=== PATIENT | female | born 1950 | race Caucasian/White ===

== ENCOUNTER → 2017-08-30 11:42 | Outpatient (CLI) | payer MEDICARE, OTHER, SELFPAY ==
[2017-08-30 11:12] VITALS: BP 138/85; BMI 27.6
[2017-08-30 13:43] LABS: Free T3 2.7 pg/mL (2.18-3.98); T4 Free Direct 1.03 ng/dL (0.76-1.46); Thyroid Stim Hormone (TSH) 1.55 uIU/mL (0.358-3.74)
[2017-09-01 14:46] LABS: Vitamin D 1,25-Dihydroxy 30.9 pg/mL (19.9-79.3)
== END ==
PROVIDERS: Family Provider Family Medicine Geriatric Medicine; PCP Family Medicine Geriatric Medicine; Visit Provider Nurse Practitioner
DX: E03.9 Hypothyroidism, unspecified (principal); E55.9 Vitamin D deficiency, unspecified
CPT/HCPCS: 36415; 82652; 84439; 84443; 84481

== ENCOUNTER → 2017-12-15 13:32 | Outpatient (CLI) | payer MEDICARE, OTHER, SELFPAY ==
[2017-12-15 15:34] LABS: Absolute Lymphocyte Count 1.62 X10^3/ul (0.83-4.51); Basophil# 0.02 X10^3/uL; Basophil% 0.3 % (0-1); Eosinophil# 0.13 X10^3/uL; Eosinophils% 1.8 % (0-5); Hematocrit 40.8 % (37-47); Lymphocyte # 1.62 X10^3/ul (4.0); Lymphocyte % 22.2 % (19-41); Mean Corp Hgb Conc 31.9 g/gl (32-36); Mean Corpuscular Hgb 28.1 pg (27.0-32.0); Mean Corpuscular Volume 88.1 fL (81-99); Mean Platelet Vol. 10.7 fl (6.2-12.0); Monocyte# 0.56 X10^3/uL; Monocyte% 7.7 % (0-10); Neutrophil # 4.95 X10^3/uL (2.7-7.7); Neutrophil % 67.9 % (47-70); Platelet Count 291 K/mm3 (150-450); RBC Distribution Width CV 14.2 % (11.6-14.6); RBC Distribution Width SD 45.7 fl (35.1-43.9); Red Blood Count 4.63 M/mm3 (4.2-5.4); White Blood Count 7.3 K/mm3 (4.4-11.0)
[2017-12-15 15:37] LABS: POSITIVE COUNT NO; POSITIVE DIFFERENTIAL NO; POSITIVE MORPHOLOGY NO
[2017-12-15 15:59] LABS: Erythrocyte Sedimentation Rate 9 mm/hr (0-30)
[2017-12-15 16:18] LABS: Anion Gap 7 (5-15); BUN 13 mg/dL (7-18); BUN/Creat Ratio 17.2 RATIO (10-20); Calcium,Total 9.5 mg/dL (8.5-10.1); Chloride 104 mmol/L (98-107); Creatinine, Serum 0.76 mg/dL (0.55-1.02); EST Glomerular Filtration Rate 81 mL/min (>60); Est Glom Filt Rate - Afr Amer 98 mL/min (>60); Glucose 78 mg/dL (74-106); Potassium 4.2 mmol/L (3.5-5.1); Rheumatoid Factor < 10.0 IU/mL (<15); Sodium Level 141 mmol/L (136-145); Uric Acid 5.7 mg/dL (2.6-6.0)
[2017-12-17 14:28] LABS: ANTINUCLEAR ANTIBODIES DIRECT Negative (Negative)
== END ==
PROVIDERS: Family Provider Family Medicine Geriatric Medicine; PCP Family Medicine Geriatric Medicine; Visit Provider Family Medicine Geriatric Medicine
DX: I10 Essential (primary) hypertension (principal); E78.4 Other hyperlipidemia; M10.9 Gout, unspecified; M19.90 Unspecified osteoarthritis, unspecified site; M25.50 Pain in unspecified joint
CPT/HCPCS: 36415; 80048; 84550; 85025; 85652; 86038; 86140; 86431

== ENCOUNTER → 2018-03-02 11:27 | Outpatient (CLI) | payer MEDICARE, OTHER, SELFPAY ==
[2018-03-02 12:59] LABS: Free T3 2.6 pg/mL (2.18-3.98); T4 Free Direct 1.18 ng/dL (0.76-1.46); Thyroid Stim Hormone (TSH) 2.12 uIU/mL (0.358-3.74)
== END ==
PROVIDERS: Family Provider Family Medicine Geriatric Medicine; PCP Family Medicine Geriatric Medicine; Visit Provider Nurse Practitioner
DX: E03.9 Hypothyroidism, unspecified (principal); E07.9 Disorder of thyroid, unspecified
CPT/HCPCS: 36415; 84439; 84443; 84481

== ENCOUNTER → 2018-03-29 12:56 | Outpatient (CLI) | payer MEDICARE, OTHER, SELFPAY | PROVIDERS: Family Provider Family Medicine Geriatric Medicine; PCP Family Medicine Geriatric Medicine; Visit Provider Family Medicine Geriatric Medicine | DX: R19.5 Other fecal abnormalities (principal) | CPT/HCPCS: 87177; 87209 ==

== ENCOUNTER → 2018-04-19 10:44 | Outpatient (CLI) | payer MEDICARE, OTHER, SELFPAY | PROVIDERS: Family Provider Family Medicine Geriatric Medicine; PCP Family Medicine Geriatric Medicine; Visit Provider Family Medicine Geriatric Medicine | DX: R19.5 Other fecal abnormalities (principal) | CPT/HCPCS: 87177; 87209 ==

== ENCOUNTER → 2018-04-25 09:36 | Outpatient (CLI) | payer MEDICARE, OTHER, SELFPAY | PROVIDERS: Family Provider Family Medicine Geriatric Medicine; PCP Family Medicine Geriatric Medicine; Visit Provider Family Medicine Geriatric Medicine | DX: Z00.00 Encounter for general adult medical examination without abnormal findings (principal) ==

== ENCOUNTER → 2018-05-04 16:24 | Outpatient (CLI) | payer MEDICARE, OTHER, SELFPAY ==
[2018-05-04 17:25] LABS: Absolute Lymphocyte Count 1.58 X10^3/ul (0.83-4.51); Absolute Neutrophil Count 8.4 X10^3/uL (2.0-7.7); Basophil# 0.02 X10^3/uL; Basophil% 0.2 % (0-1); Eosinophil# 0.15 X10^3/uL; Eosinophils% 1.4 % (0-5); Hematocrit 41.4 % (37-47); Hemoglobin 13.2 g/dl (12.0-15.0); Lymphocyte # 1.58 X10^3/ul (4.0); Lymphocyte % 14.5 % (19-41); Mean Corp Hgb Conc 31.9 g/gl (32-36); Mean Corpuscular Hgb 28.6 pg (27.0-32.0); Mean Corpuscular Volume 89.6 fL (81-99); Mean Platelet Vol. 10.7 fl (6.2-12.0); Monocyte# 0.74 X10^3/uL; Monocyte% 6.8 % (0-10); Neutrophil # 8.43 X10^3/uL (2.7-7.7); Platelet Count 305 K/mm3 (150-450); RBC Distribution Width CV 14.6 % (11.6-14.6); RBC Distribution Width SD 47.7 fl (35.1-43.9); Red Blood Count 4.62 M/mm3 (4.2-5.4); White Blood Count 10.9 K/mm3 (4.4-11.0)
[2018-05-04 17:31] LABS: Internal QC Validated? YES +Cl - CLEAR BKGD; Monotest Negative (Negative); Record Kit Lot#, Mono 13171517
[2018-05-04 17:41] LABS: POSITIVE COUNT NO; POSITIVE DIFFERENTIAL NO; POSITIVE MORPHOLOGY NO
[2018-05-04 17:45] LABS: AST(SGOT) 21 U/L (15-37); Alanine Aminotransfer ALT/SGPT 23 U/L (13-56); Albumin, Serum 3.7 g/dL (3.2-5.0); Alkaline Phosphatase 106 U/L (45-117); Anion Gap 7 (5-15); BUN 17 mg/dL (7-18); BUN/Creat Ratio 23.4 RATIO (10-20); Calcium,Total 9.3 mg/dL (8.5-10.1); Chloride 105 mmol/L (98-107); Creatinine, Serum 0.73 mg/dL (0.55-1.02); EST Glomerular Filtration Rate 85 mL/min (>60); Est Glom Filt Rate - Afr Amer 103 mL/min (>60); Globulin 3.8 g/dL (2.2-4.2); Glucose 79 mg/dL (74-106); Potassium 3.9 mmol/L (3.5-5.1); Protein, Total 7.5 g/dL (6.4-8.2); Sodium Level 141 mmol/L (136-145); Thyroid Stim Hormone (TSH) 1.66 uIU/mL (0.358-3.74)
[2018-05-10 22:08] LABS: Lyme IgG P18 Ab Absent (.); Lyme IgG P23 Ab Absent (.); Lyme IgG P28 Ab Absent (.); Lyme IgG P30 Ab Absent (.); Lyme IgG P39 Ab Absent (.); Lyme IgG P41 Ab Absent (.); Lyme IgG P45 Ab Absent (.); Lyme IgG P58 Ab Absent (.); Lyme IgG P66 Ab Absent (.); Lyme IgG P93 Ab Absent (.); Lyme IgM P23 Ab Absent (.); Lyme IgM P39 Ab Absent (.); Lyme IgM P41 Ab Absent (.)
[2018-05-11 14:50] LABS: Lyme IgG WB Interpretation Negative (.); Lyme IgM WB Interpretation Negative (.)
== END ==
PROVIDERS: Family Provider Family Medicine Geriatric Medicine; PCP Family Medicine Geriatric Medicine; Visit Provider Family Medicine Geriatric Medicine
DX: N39.0 Urinary tract infection, site not specified (principal); R53.83 Other fatigue; T07.XXXA Unspecified multiple injuries, initial encounter; R10.9 Unspecified abdominal pain; R68.83 Chills (without fever)
CPT/HCPCS: 36415; 74177; 80053; 84443; 85025; 86308; 86617; 87086; 87088; 87633; Q9967

== ENCOUNTER → 2018-05-04 17:04 | Outpatient (CLI) | payer MEDICARE, OTHER, SELFPAY ==
--- NOTE | 2018-05-04 17:10 | CT_ITS ---
STUDY: CT ABDOMEN AND PELVIS WITH CONTRAST - VENOGRAM REASON FOR EXAM: Female, 68 years old. Abdominal pain RADIATION DOSAGE (If Supplied By Facility): CTDIvol = ( 11.72 ) mGy, DLP = ( 598.55 ) mGycm TECHNIQUE: Transaxial images were obtained from the dome of the diaphragm to the symphysis pubis without oral contrast. 100ML ml of Isovue 300 contrast was administered. Multiplanar coronal and sagittal images were reformatted. CT venogram protocol utilized, with delayed images performed during venous phase. Individualized Dose Optimization Techniques Were Used For This CT. COMPARISON: None. FINDINGS: The visualized lung bases are unremarkable. The visualized portions of the heart are within normal limits. Normal liver. Normal gallbladder and extrahepatic biliary system. Normal spleen. Normal pancreas. Normal bilateral adrenal glands. Normal right kidney. 4 mm cyst in the left kidney. Normal visualized stomach. Normal small intestine. Mild diverticulosis of the colon. The appendix is visualized and appears normal. Mildly calcified abdominal aorta. No retroperitoneal adenopathy. IVC is patent. Normal urinary bladder. Normal uterus. Normal abdominal wall. Normal osseous structures. CT/Abdomen/Pelvis WITH Contrast IMPRESSION: Small left renal cyst. Mild colonic diverticulosis. Electronically Signed: Kentrell Rinaldi DO at 19:54 EDT Tel [phone], Service support ,
== END ==
PROVIDERS: Family Provider Family Medicine Geriatric Medicine; PCP Family Medicine Geriatric Medicine; Referring Provider Family Medicine Geriatric Medicine; Visit Provider Family Medicine Geriatric Medicine
DX: R10.9 Unspecified abdominal pain (principal); R68.83 Chills (without fever)
CPT/HCPCS: 74177; 87633; Q9967

== ENCOUNTER → 2018-05-10 09:44 | Outpatient (CLI) | payer MEDICARE, OTHER, SELFPAY ==
--- NOTE | 2018-05-10 09:51 | NM_ITS ---
CLINICAL: 68-year-old female with reported history of abdominal pain and nausea. SEMI-SOLID PHASE 99m Tc SULFUR COLLOID GASTRIC EMPTYING STUDY COMPARISON: CT of the abdomen-pelvis report 05/04/2018 FINDINGS: The patient was administered 1.0 mCi of 99m Tc sulfur colloid mixed with oatmeal and consumed per os. Image acquisitions in the anterior-posterior projections for a total of 60 minutes. There is prompt visualization of the stomach. There is no gastroesophageal reflux identified. The T1/2 linear fit was calculated to be 32.41 minutes, (Normal: 12-56 minutes). NM/Gastric Emptying Study IMPRESSION: 1. NORMAL 99m Tc sulfur colloid semi-solid phase (oatmeal) gastric emptying imaging examination. A. There is normal and preserved semi-solid phase gastric emptying compared to normal controls with maintained first order kinetics throughout all components of the examination. (Mary et al, J Nucl Med Tech 38: 186, 2010). Electronically Signed: Isaac Lancaster DO at 23:39 EDT Tel , Service support ,
== END ==
PROVIDERS: Family Provider Family Medicine Geriatric Medicine; PCP Family Medicine Geriatric Medicine; Referring Provider Family Medicine Geriatric Medicine; Visit Provider Family Medicine Geriatric Medicine
DX: R10.9 Unspecified abdominal pain (principal)
CPT/HCPCS: 78264; A9541

== ENCOUNTER → 2018-05-18 11:59 | Outpatient (CLI) | payer MEDICARE, OTHER, SELFPAY ==
[2018-05-18 12:58] LABS: Vitamin D,25 Hydroxy 25.5 ng/mL (29.95-100.01)
== END ==
PROVIDERS: Family Provider Family Medicine Geriatric Medicine; PCP Family Medicine Geriatric Medicine; Visit Provider Family Medicine Geriatric Medicine
DX: E55.9 Vitamin D deficiency, unspecified (principal); R53.83 Other fatigue
CPT/HCPCS: 36415; 82306

== ENCOUNTER → 2018-07-01 12:51 | Outpatient (CLI) | payer MEDICARE, OTHER, SELFPAY ==
--- NOTE | 2018-07-01 12:56 | BI_ITS ---
MAMMOGRAPHY - BILATERAL SCREENING REASON FOR EXAM: Female, 68 years old. Routine annual screening examination. PERTINENT HISTORY: Non-contributory. TECHNIQUE: Digital bilateral breast britta (3D mammographic acquisition) in the CC and MLO projections. 2-D mediolateral oblique (MLO) and craniocaudad (CC) views of both breasts were obtained. CAD: Full Field Digital Mammography with Computer Added Detection was performed. COMPARISON: Comparison is made with prior study dated September 07, 2016 and June 05, 2015. FINDINGS: Breast Composition: The breasts are heterogeneously dense, which may obscure small masses. There are no dominant masses or suspicious calcifications. No other significant abnormalities are identified. There has been no significant change since the prior study. BI/SCREENING MAMM (CAD), BILAT IMPRESSION: Stable bilateral screening mammogram. Yearly follow-up mammogram recommended. (A) ASSESSMENT CATEGORY: BIRADS Category 1: Negative. A letter regarding these results will be sent to the patient by the facility within 30 days. Approximately 10% of breast cancers are not detected by mammography. A normal mammogram should not delay biopsy of a clinically suspicious abnormality. [id number] Electronically Signed: Shad Wright MD at 14:37 EST Tel [phone], Service support ,
== END ==
PROVIDERS: Family Provider Family Medicine Geriatric Medicine; PCP Family Medicine Geriatric Medicine; Referring Provider Family Medicine Geriatric Medicine; Visit Provider Family Medicine Geriatric Medicine
DX: Z12.31 Encounter for screening mammogram for malignant neoplasm of breast (principal)
CPT/HCPCS: 77063; 77067

== ENCOUNTER → 2019-01-03 15:46 | Outpatient (CLI) | payer MEDICARE, OTHER, SELFPAY ==
[2019-01-03 15:46] VITALS: BMI 27.6
[2019-01-03 18:19] LABS: T4 Total, Thyroxin 9.8 ug/dL (4.8-13.9); Thyroid Stim Hormone (TSH) 1.46 uIU/mL (0.358-3.74)
== END ==
PROVIDERS: Family Provider Family Medicine; PCP Family Medicine; Referring Provider Family Medicine; Visit Provider Family Medicine
DX: E03.9 Hypothyroidism, unspecified (principal)
CPT/HCPCS: 36415; 84436; 84443

== ENCOUNTER → 2019-07-03 10:36 | Outpatient (CLI) | payer MEDICARE, OTHER, SELFPAY ==
[2019-01-03 15:46] VITALS: BMI 27.6
--- NOTE | 2019-07-03 10:40 | BI_ITS ---
MAMMOGRAPHY - BILATERAL SCREENING REASON FOR EXAM: Female, 69 years old. Routine annual screening examination. PERTINENT HISTORY: Non-contributory. TECHNIQUE: Digital bilateral breast henrik (3D mammographic acquisition) in the CC and MLO projections. 2-D mediolateral oblique (MLO) and craniocaudad (CC) views of both breasts were obtained. CAD: Full Field Digital Mammography with Computer Added Detection was performed. COMPARISON: Comparison is made with prior examination dated July 01, 2018 and September 07, 2016. FINDINGS: Breast Composition: The breasts are heterogeneously dense, which may obscure small masses. There are no dominant masses or suspicious calcifications. No other significant abnormalities are identified. There has been no significant change since the prior study. BI/SCREEN MAMM (CAD) W/HENRIK BILAT IMPRESSION: Stable bilateral screening mammogram. Yearly follow-up mammogram recommended. (A) ASSESSMENT CATEGORY: BIRADS Category 1: Negative. A letter regarding these results will be sent to the patient by the facility within 30 days. Approximately 10% of breast cancers are not detected by mammography. A normal mammogram should not delay biopsy of a clinically suspicious abnormality. [id number] Electronically Signed: Shad Wright, at 12:37 EST , Service support ,
== END ==
PROVIDERS: Family Provider Family Medicine; PCP Family Medicine; Referring Provider Family Medicine; Visit Provider Family Medicine
DX: Z12.31 Encounter for screening mammogram for malignant neoplasm of breast (principal)
CPT/HCPCS: 77063; 77067

== ENCOUNTER → 2019-07-04 15:51 | Outpatient (CLI) | payer MEDICARE, OTHER, SELFPAY ==
[2019-01-03 15:46] VITALS: BMI 27.6
[2019-07-04 18:33] LABS: Vitamin D,25 Hydroxy 26.1 ng/mL (29.95-100.01)
== END ==
PROVIDERS: Family Provider Family Medicine; PCP Family Medicine; Visit Provider Family Medicine
DX: R25.2 Cramp and spasm (principal)
CPT/HCPCS: 36415; 82306

== ENCOUNTER → 2020-01-05 16:19 | Outpatient (CLI) | payer MEDICARE, OTHER, SELFPAY ==
[2019-01-03 15:46] VITALS: BMI 27.6
[2020-01-05 18:39] LABS: T4 Total, Thyroxin 8.7 ug/dL (4.8-13.9); Thyroid Stim Hormone (TSH) 2.23 uIU/mL (0.358-3.74)
== END ==
PROVIDERS: PCP Family Medicine; Visit Provider Family Medicine
DX: E03.9 Hypothyroidism, unspecified (principal)
CPT/HCPCS: 36415; 84436; 84443

== ENCOUNTER → 2020-07-10 11:08 | Outpatient (CLI) | payer MEDICARE, OTHER, SELFPAY ==
[2019-01-03 15:46] VITALS: BMI 27.6
[2020-07-10 13:29] LABS: ALB/GLOB Ratio 1.2 RATIO (0.9-2.4); AST(SGOT) 22 U/L (15-37); Alanine Aminotransfer ALT/SGPT 19 U/L (13-56); Albumin, Serum 3.9 g/dL (3.2-5.0); Alkaline Phosphatase 103 U/L (45-117); Anion Gap 7 (5-15); BUN 16 mg/dL (7-18); BUN/Creat Ratio 21.1 RATIO (10-20); Calcium,Total 9.4 mg/dL (8.5-10.1); Chloride 105 mmol/L (98-107); Creatinine, Serum 0.76 mg/dL (0.55-1.02); EST Glomerular Filtration Rate 81 mL/min (>60); Est Glom Filt Rate - Afr Amer 98 mL/min (>60); Globulin 3.3 g/dL (2.2-4.2); Glucose 71 mg/dL (74-106); Magnesium 2.5 mg/dL (1.6-2.6); Potassium 4.2 mmol/L (3.5-5.1); Protein, Total 7.2 g/dL (6.4-8.2); Sodium Level 141 mmol/L (136-145); Thyroid Stim Hormone (TSH) 2.82 uIU/mL (0.358-3.74)
== END ==
PROVIDERS: PCP Family Medicine; Referring Provider Family Medicine; Visit Provider Family Medicine
DX: E03.9 Hypothyroidism, unspecified (principal); R25.2 Cramp and spasm
CPT/HCPCS: 36415; 80053; 83735; 84436; 84443

== ENCOUNTER → 2020-08-06 15:12 | Outpatient (CLI) | payer MEDICARE, OTHER, SELFPAY ==
[2019-01-03 15:46] VITALS: BMI 27.6
--- NOTE | 2020-08-06 15:14 | BI_ITS ---
MAMMOGRAPHY - BILATERAL SCREENING REASON FOR EXAM: Female, 70 years old. Routine annual screening examination. PERTINENT HISTORY: Non-contributory. TECHNIQUE: Digital bilateral breast henrik (3D mammographic acquisition) in the CC and MLO projections. 2-D mediolateral oblique (MLO) and craniocaudad (CC) views of both breasts were obtained. CAD: Full Field Digital Mammography with Computer Added Detection was performed. COMPARISON: Comparison is made with prior study dated 07/03/2019 and 07/01/2018. FINDINGS: Breast Composition: The breasts are heterogeneously dense, which may obscure small masses. There are no dominant masses or suspicious calcifications. No other significant abnormalities are identified. There has been no significant change since the prior study. BI/SCREEN MAMM (CAD) W/HENRIK BILAT IMPRESSION: Stable bilateral screening mammogram. Yearly follow-up mammogram recommended. (A) ASSESSMENT CATEGORY: BIRADS Category 1: Negative. A letter regarding these results will be sent to the patient by the facility within 30 days. Approximately 10% of breast cancers are not detected by mammography. A normal mammogram should not delay biopsy of a clinically suspicious abnormality. [id number] Electronically Signed: Shad Wright, at 8:19 EST , Service support ,
--- NOTE | 2020-08-06 15:18 | BD_ITS ---
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 COMPARISON: None. FINDINGS: Lumbar Spine (L1-L4): g/cm2 (0.992) / T-score (-1.4) / Z-score (0.2) Findings are suggestive of osteopenia with a low fracture risk. Left Femur Total: g/cm2 (1.025) / T-score (0.1) / Z-score (1.5) Left Femoral Neck: g/cm2 (1.090) / T-score (0.4) / Z-score (2.0) Right Femur Total: g/cm2 (0.938) / T-score (-0.5) / Z-score (0.8) Right Femoral Neck: g/cm2 (1.097) / T-score (0.4) / Z-score (2.0) BD/Dexa Bone Density Study IMPRESSION: The patient is considered osteopenic as outlined below according to World [employer] Organization (WHO) criteria with a low fracture risk. Reference Information: The T-score is the number of standard deviations above or below the standard which is normal for young adults at their peak bone mineral density. The World Health Organization (WHO) interprets the T-scores as follows: Above -1 Normal bone density Between -1 and -2.5 Osteopenia Equal to / or below -2.5 Osteoporosis As a practical clinical guideline, osteopenia may be graded as follows: Mild -1 through -1.5 Moderate -1.6 through -2.0 Severe -2.1 through -2.4 The Z-score is the number of standard deviations above or below age-matched controls. A Z-score of less than -1.5 would be considered abnormal. References: 1. NIH Osteoporosis and Related Bone Diseases www osteo.org 2. International Society for Clinical Densitometry www iscd.org 3. National Osteoporosis Foundation www nof.org Electronically Signed: Shad Wright, at 15:43 EST , Service support ,
== END ==
PROVIDERS: PCP Family Medicine; Visit Provider Family Medicine
DX: Z12.31 Encounter for screening mammogram for malignant neoplasm of breast (principal); N95.9 Unspecified menopausal and perimenopausal disorder; M85.80 Other specified disorders of bone density and structure, unspecified site
CPT/HCPCS: 77063; 77067; 77080

== ENCOUNTER → 2021-05-19 | Outpatient (CLI) | payer MEDICARE, OTHER, SELFPAY | END | disposition home or self-care (01) | LOC: LABSPEC 15:50 | PROVIDERS: PCP Family Medicine; Referring Provider Family Medicine; Visit Provider Registered Nurse | DX: N39.0 Urinary tract infection, site not specified (principal) | CPT/HCPCS: 87086; 87088 ==

== ENCOUNTER → 2021-06-30 08:40 | Outpatient (CLI) | payer MEDICARE, OTHER, SELFPAY ==
[2021-06-30 10:01] LABS: Hematocrit 40.2 % (37-47); Hemoglobin 12.8 g/dL (12.0-15.0); Mean Corp Hgb Conc 31.8 g/dL (32-36); Mean Corpuscular Volume 91.2 fL (81-99); Mean Platelet Vol. 10.9 fl (6.2-12.0); Platelet Count 424 K/mm3 (150-450); RBC Distribution Width CV 13.8 % (11.6-14.6); RBC Distribution Width SD 46.9 fl (35.1-43.9); Red Blood Count 4.41 M/mm3 (4.2-5.4)
[2021-06-30 10:51] LABS: Vitamin D,25 Hydroxy 54.9 ng/mL
[2021-06-30 11:05] LABS: ALB/GLOB Ratio 0.8 RATIO (0.9-2.4); AST(SGOT) 22 U/L (15-37); Alanine Aminotransfer ALT/SGPT 36 U/L (13-56); Albumin, Serum 3.4 g/dL (3.2-5.0); Alkaline Phosphatase 191 U/L (45-117); Anion Gap 8 (5-15); BUN 16 mg/dL (7-18); Chloride 106 mmol/L (98-107); EST Glomerular Filtration Rate 75 mL/min (>60); Est Glom Filt Rate - Afr Amer 91 mL/min (>60); Glucose 79 mg/dL (74-106); Protein, Total 7.4 g/dL (6.4-8.2); Sodium Level 142 mmol/L (136-145); T4 Free Direct 1.17 ng/dL (0.76-1.46); Thyroid Stim Hormone (TSH) 2.17 uIU/mL (0.358-3.74)
== END ==
PROVIDERS: PCP Family Medicine; Referring Provider Family Medicine; Visit Provider Nurse Practitioner Family
DX: E03.9 Hypothyroidism, unspecified (principal); N95.9 Unspecified menopausal and perimenopausal disorder; E55.9 Vitamin D deficiency, unspecified
CPT/HCPCS: 36415; 80053; 82306; 84439; 84443; 85027

== ENCOUNTER 2021-08-07 08:35 | Outpatient (CLI) | payer MEDICARE, OTHER, SELFPAY ==
--- NOTE | 2021-08-07 08:40 | BI_ITS ---
MAMMOGRAPHY - BILATERAL SCREENING REASON FOR EXAM: Female, 71 years old. Routine annual screening examination. PERTINENT HISTORY: Non-contributory. TECHNIQUE: Digital bilateral breast britta (3D mammographic acquisition) in the CC and MLO projections. 2-D mediolateral oblique (MLO) and craniocaudad (CC) views of both breasts were obtained. CAD: Full Field Digital Mammography with Computer Added Detection was performed. COMPARISON: Comparison is made with prior study dated 08/06/2020 and 07/03/2019. FINDINGS: Breast Composition: The breasts are heterogeneously dense, which may obscure small masses. There are no dominant masses or suspicious calcifications. No other significant abnormalities are identified. There has been no significant change since the prior study. BI/SCREENING MAMM (CAD), BILAT IMPRESSION: Stable bilateral screening mammogram. Yearly follow-up mammogram recommended. (A) ASSESSMENT CATEGORY: BIRADS Category 1: Negative. A letter regarding these results will be sent to the patient by the facility within 30 days. Approximately 10% of breast cancers are not detected by mammography. A normal mammogram should not delay biopsy of a clinically suspicious abnormality. [id number] Electronically Signed: Shad Wright MD at 9:57 EST , Service support ,
== END 2021-08-07 23:59 | disposition short-term general hospital (02) ==
LOC: OPBI 08:36
PROVIDERS: PCP Family Medicine; Referring Provider Family Medicine; Visit Provider Family Medicine
DX: Z12.31 Encounter for screening mammogram for malignant neoplasm of breast (principal)
CPT/HCPCS: 77067

== ENCOUNTER → 2022-06-08 | Outpatient (CLI) | payer MEDICARE, OTHER, SELFPAY ==
[2022-06-08 12:05] LABS: Hematocrit 41.1 % (37-47); Mean Corp Hgb Conc 31.6 g/dL (32-36); Mean Corpuscular Hgb 29.4 pg (27.0-32.0); Mean Platelet Vol. 10.2 fl (6.2-12.0); Platelet Count 297 K/mm3 (150-450); RBC Distribution Width CV 14.1 % (11.6-14.6); RBC Distribution Width SD 47.8 fl (35.1-43.9); Red Blood Count 4.42 M/mm3 (4.2-5.4); White Blood Count 7.1 K/mm3 (4.4-11.0)
[2022-06-08 12:35] LABS: Anion Gap 6 (5-15); BUN 13 mg/dL (7-18); BUN/Creat Ratio 14.8 RATIO (10-20); Calcium,Total 9.4 mg/dL (8.5-10.1); Chloride 104 mmol/L (98-107); Creatinine, Serum 0.88 mg/dL (0.55-1.02); EST Glomerular Filtration Rate 68 mL/min (>60); Est Glom Filt Rate - Afr Amer 82 mL/min (>60); Free T3 2.2 pg/mL (2.18-3.98); Glucose 82 mg/dL (74-106); Potassium 4.2 mmol/L (3.5-5.1); Sodium Level 139 mmol/L (136-145); T4 Total, Thyroxin 9.3 ug/dL (4.8-13.9); Thyroid Stim Hormone (TSH) 2.95 uIU/mL (0.358-3.74)
[2022-06-08 12:42] LABS: Vitamin B12 > 2000 pg/mL (211-911); Vitamin D,25 Hydroxy 58.9 ng/mL
== END | disposition home or self-care (01) ==
LOC: MFPLAB 10:49
PROVIDERS: PCP Family Medicine; Visit Provider Nurse Practitioner Family
DX: E03.9 Hypothyroidism, unspecified (principal); R53.83 Other fatigue; E55.9 Vitamin D deficiency, unspecified
CPT/HCPCS: 36415; 80048; 82306; 82607; 84436; 84443; 84481; 85027

== ENCOUNTER → 2022-08-10 | Outpatient (CLI) | payer MEDICARE, OTHER, SELFPAY ==
--- NOTE | 2022-08-10 07:56 | BI_ITS ---
MAMMOGRAPHY - BILATERAL SCREENING REASON FOR EXAM: Female, 72 years old. Routine annual screening examination. PERTINENT HISTORY: Non-contributory. TECHNIQUE: Digital bilateral breast henrik (3D mammographic acquisition) in the CC and MLO projections. 2-D mediolateral oblique (MLO) and craniocaudad (CC) views of both breasts were obtained. CAD: Full Field Digital Mammography with Computer Added Detection was performed. COMPARISON: Comparison is made with prior study dated 08/07/2021 and 08/06/2020. FINDINGS: Breast Composition: The breasts are heterogeneously dense, which may obscure small masses. There are no dominant masses or suspicious calcifications. Stable asymmetry of breast tissue with normal breast tissue seen in the upper-outer quadrant of the left breast as compared to the right side. Stable small benign-appearing bilateral axillary lymph nodes. No other significant abnormalities are identified. There has been no significant change since the prior study. BI/SCRN MAMM (CAD)W/HENRIK BILAT IMPRESSION: Stable bilateral screening mammogram. Yearly follow-up mammogram recommended. (A) ASSESSMENT CATEGORY: BIRADS Category 2: Benign. A letter regarding these results will be sent to the patient by the facility within 30 days. Approximately 10% of breast cancers are not detected by mammography. A normal mammogram should not delay biopsy of a clinically suspicious abnormality. [id number] Electronically Signed: Shad Wright MD at 9:26 EST ,
== END | disposition home or self-care (01) ==
LOC: OPBI 07:54
PROVIDERS: PCP Family Medicine; Referring Provider Family Medicine; Visit Provider Family Medicine
DX: Z12.31 Encounter for screening mammogram for malignant neoplasm of breast (principal)
CPT/HCPCS: 77063; 77067

== ENCOUNTER → 2022-11-17 | Outpatient (CLI) | payer MEDICARE, OTHER, SELFPAY | END | disposition home or self-care (01) | LOC: MFPLAB 11:13 | PROVIDERS: PCP Family Medicine; Visit Provider Family Medicine | DX: R53.83 Other fatigue (principal) | CPT/HCPCS: 36415; 82024; 82157; 84403 ==

== ENCOUNTER → 2023-10-12 | Outpatient (CLI) | payer MEDICARE, OTHER, SELFPAY ==
[2023-10-12 18:26] LABS: Cholesterol 229 mg/dL (200); High Density Lipoprotein 53 mg/dL; T4 Total, Thyroxin 10.4 ug/dL (4.8-13.9); Thyroid Stim Hormone (TSH) 2.25 uIU/mL (0.358-3.74); Triglycerides 150 mg/dL; Very Low Density Lipoprotein 30 mg/dL (5-40)
== END | disposition home or self-care (01) ==
LOC: MFPLAB 16:48
PROVIDERS: PCP Family Medicine; Visit Provider Family Medicine
DX: Z13.220 Encounter for screening for lipoid disorders (principal); E03.9 Hypothyroidism, unspecified
CPT/HCPCS: 36415; 80061; 84436; 84443

== ENCOUNTER → 2023-10-19 | Outpatient (CLI) | payer MEDICARE, OTHER, SELFPAY ==
--- NOTE | 2023-10-19 10:13 | BI_ITS ---
MAMMOGRAPHY - BILATERAL SCREENING REASON FOR EXAM: Female, 73 years old. Routine annual screening examination. PERTINENT HISTORY: Non-contributory. History of prior bilateral breast aspirations and needle biopsy. TECHNIQUE: Digital bilateral breast henrik (3D mammographic acquisition) in the CC and MLO projections. 2-D mediolateral oblique (MLO) and craniocaudad (CC) views of both breasts were obtained. CAD: Full Field Digital Mammography with Computer Added Detection was performed. COMPARISON: Comparison is made with prior study dated February 07, 2023 and August 07, 2021. FINDINGS: Breast Composition: The breasts are heterogeneously dense, which may obscure small masses. There are no dominant masses or suspicious calcifications. Stable asymmetry of breast tissue where more breast tissue is seen in the upper-outer quadrant of the left breast as compared to the right side. Stable small bilateral axillary lymph nodes. No other significant abnormalities are identified. There has been no significant change since the prior study. BI/SCRN MAMM (CAD)W/HENRIK BILAT IMPRESSION: Stable bilateral screening mammogram. Yearly follow-up mammogram recommended. (A) ASSESSMENT CATEGORY: BIRADS Category 2: Benign. A letter regarding these results will be sent to the patient by the facility within 30 days. Approximately 10% of breast cancers are not detected by mammography. A normal mammogram should not delay biopsy of a clinically suspicious abnormality. [id number] Electronically Signed: Shad Wright MD at 12:25 EDT ,
== END | disposition home or self-care (01) ==
LOC: OPBI 10:13
PROVIDERS: PCP Family Medicine; Referring Provider Family Medicine; Visit Provider Family Medicine
DX: Z12.31 Encounter for screening mammogram for malignant neoplasm of breast (principal)
CPT/HCPCS: 77063; 77067

== ENCOUNTER → 2024-04-03 | Outpatient (CLI) | payer MEDICARE, OTHER, SELFPAY ==
[2024-04-03 16:41] LABS: AST(SGOT) 23 U/L (15-37); Alanine Aminotransfer ALT/SGPT 15 U/L (13-56); Cholesterol 207 mg/dL (200); High Density Lipoprotein 54 mg/dL; T4 Total, Thyroxin 11.5 ug/dL (4.8-13.9); Triglycerides 113 mg/dL; Very Low Density Lipoprotein 23 mg/dL (5-40)
== END | disposition home or self-care (01) ==
LOC: MFPLAB 11:29
PROVIDERS: PCP Family Medicine; Visit Provider Family Medicine
DX: Z13.220 Encounter for screening for lipoid disorders (principal); E03.9 Hypothyroidism, unspecified; E78.5 Hyperlipidemia, unspecified
CPT/HCPCS: 36415; 80061; 84436; 84443; 84450; 84460

== ENCOUNTER → 2024-05-19 | Outpatient (CLI) | payer MEDICARE, OTHER, SELFPAY ==
[2024-05-19 17:32] LABS: Absolute Lymphocyte Count 1.81 X10^3/uL (0.83-4.51); Absolute Neutrophil Count 7.7 X10^3/uL (2.0-7.7); Basophil# 0.06 X10^3/uL; Basophil% 0.6 % (0-1); Eosinophil# 0.17 X10^3/uL; Eosinophils% 1.6 % (0-5); Hematocrit 38.7 % (37-47); Hemoglobin 12.5 g/dL (12.0-15.0); Lymphocyte # 1.81 X10^3/ul (0.83-4.51); Lymphocyte % 17.5 % (19-41); Mean Corp Hgb Conc 32.3 g/dL (32-36); Mean Corpuscular Hgb 29.1 pg (27.0-32.0); Mean Corpuscular Volume 90.2 fL (81-99); Mean Platelet Vol. 10.6 fl (6.2-12.0); Monocyte# 0.59 X10^3/uL; Monocyte% 5.7 % (0-10); NRBC Flagged by Analyzer 0 % (0-5); Neutrophil # 7.65 X10^3/uL (2.7-7.7); Neutrophil % 74.2 % (47-70); Platelet Count 324 K/mm3 (150-450); RBC Distribution Width CV 13.4 % (11.6-14.6); RBC Distribution Width SD 44.4 fl (35.1-43.9); Red Blood Count 4.29 M/mm3 (4.2-5.4); White Blood Count 10.3 K/mm3 (4.4-11.0)
[2024-05-19 17:48] LABS: Vitamin B12 684 pg/mL (211-911); Vitamin D,25 Hydroxy 66.3 ng/mL
[2024-05-19 18:25] LABS: ALB/GLOB Ratio 0.9 RATIO (0.9-2.4); AST(SGOT) 20 U/L (15-37); Alanine Aminotransfer ALT/SGPT 19 U/L (13-56); Albumin, Serum 3.7 g/dL (3.2-5.0); Alkaline Phosphatase 120 U/L (45-117); Anion Gap 5 (5-15); BUN 18 mg/dL (7-18); Calcium,Total 9.9 mg/dL (8.5-10.1); Chloride 103 mmol/L (98-107); Creatinine, Serum 0.86 mg/dL (0.55-1.02); EST Glomerular Filtration Rate 69 mL/min (>60); Est Glom Filt Rate - Afr Amer 84 mL/min (>60); Globulin 3.9 g/dL (2.2-4.2); Glucose 89 mg/dL (74-106); Potassium 4.2 mmol/L (3.5-5.1); Protein, Total 7.6 g/dL (6.4-8.2); Sodium Level 136 mmol/L (136-145)
[2024-05-19 18:43] LABS: Hemoglobin A1c 5.3 % (3.8-5.6)
== END | disposition home or self-care (01) ==
LOC: MFPLAB 15:49
PROVIDERS: PCP Family Medicine; Referring Provider Family Medicine; Visit Provider Family Medicine
DX: R47.9 Unspecified speech disturbances (principal); E55.9 Vitamin D deficiency, unspecified
CPT/HCPCS: 36415; 80053; 82306; 82607; 82746; 83036; 85025

== ENCOUNTER → 2024-05-27 | Outpatient (CLI) | payer MEDICARE, OTHER, SELFPAY | END | disposition home or self-care (01) | LOC: CT 07:38 | PROVIDERS: PCP Family Medicine; Referring Provider Family Medicine; Visit Provider Family Medicine | DX: R47.9 Unspecified speech disturbances (principal) | CPT/HCPCS: 70450 ==

== ENCOUNTER → 2024-11-24 | Outpatient (CLI) | payer MEDICARE, OTHER, SELFPAY ==
--- NOTE | 2024-11-24 08:58 | MRI_ITS ---
PROCEDURE: BRAIN WITHOUT CONTRAST 11/24/2024 REASON FOR EXAM: SPEECH CHANGES TECHNIQUE: Noncontrast brain MRI. Multiplanar and multisequence images were obtained. COMPARISON: CT brain 05/27/2024 FINDINGS: Brain: Moderate cerebral atrophy and chronic periventricular white matter disease. No suspicious intracranial mass. No evidence of an acute infarct. No intracranial hemorrhage. Ventricles: Consistent with the overall degree of cerebral atrophy. Major Intracranial Vessels: Major intracranial vessels demonstrate normal flow voids. Sinuses: Mild paranasal sinus mucosal thickening. Mastoids: Mastoid air cells are clear. Craniocervical junction is within normal limits. No suspicious marrow replacement process. Skull base is unremarkable. MRI/Brain without Contrast IMPRESSION: No acute intracranial abnormality. Chronic microvascular ischemia and involutional changes. Reading Location: [facility]
== END | disposition home or self-care (01) ==
LOC: MRI 08:41
PROVIDERS: PCP Family Medicine; Referring Provider Family Medicine; Visit Provider Family Medicine
DX: R47.01 Aphasia (principal)
CPT/HCPCS: 70551

== ENCOUNTER → 2024-11-29 | Outpatient (CLI) | payer MEDICARE, OTHER, SELFPAY ==
--- NOTE | 2024-11-29 10:40 | BI_ITS ---
EXAM: SCRN MAMM (CAD)W/HENRIK BILAT DATE: 11/29/2024 CLINICAL HISTORY: F, Age 74 y/o , SCREENING BREAST CANCER RISK ASSESSMENT: Not reported TECHNIQUE: Bilateral screening digital breast tomosynthesis with 2D and 3D images. Computer aided detection. COMPARISON: Prior exam(s) were compared FINDINGS: TISSUE DENSITY: The breast tissue is heterogenously dense, which may obscure small masses. Bilateral Breast Mammographic Findings: No suspicious masses, calcifications or other abnormalities are identified. BI/SCRN MAMM (CAD)W/HENRIK BILAT IMPRESSION: OVERALL FINAL ASSESSMENT: BIRADS 1 NEGATIVE RECOMMENDATION: Routine annual follow-up in 1 Year A letter with findings and recommendations will be mailed to the patient. Reading Location: [id number]
== END | disposition home or self-care (01) ==
LOC: OPBI 10:39
PROVIDERS: PCP Family Medicine; Referring Provider Family Medicine; Visit Provider Family Medicine
DX: Z12.31 Encounter for screening mammogram for malignant neoplasm of breast (principal)
CPT/HCPCS: 77063; 77067

== ENCOUNTER 2025-05-23 08:49 | Outpatient (CLI) | payer MEDICARE, OTHER, SELFPAY ==
[2025-05-23 10:27] LABS: Hematocrit 39.4 % (37-47); Hemoglobin 12.8 g/dL (12.0-15.0); Immature Granulocytes Count 0.010 X10^3/uL (0.0-0.0); Mean Corp Hgb Conc 32.5 g/dL (32-36); Mean Corpuscular Volume 91.0 fL (81-99); Mean Platelet Vol. 10.5 fl (6.2-12.0); NRBC Flagged by Analyzer 0 % (0-5); Platelet Count 319 K/mm3 (150-450); RBC Distribution Width CV 13.2 % (11.6-14.6); RBC Distribution Width SD 44.6 fl (35.1-43.9); Red Blood Count 4.33 M/mm3 (4.2-5.4); White Blood Count 7.2 K/mm3 (4.4-11.0)
[2025-05-23 11:09] LABS: AST(SGOT) 25 U/L (<=31); Alanine Aminotransfer ALT/SGPT 12 U/L (<=34); Albumin, Serum 4.2 g/dL (3.4-4.8); Alkaline Phosphatase 109 U/L (35-104); Anion Gap 11 (5-15); BUN 14 mg/dL (4-19); BUN/Creat Ratio 16.2 RATIO (10-20); Calcium,Total 9.8 mg/dL (7.6-11.0); Carbon Dioxide 28.3 mmol/L (21.0-32.0); Chloride 104 mmol/L (98-108); Cholesterol 152 mg/dL (<=200); Globulin 2.9 g/dL (2.2-4.2); Glucose 83 mg/dL (70-99); Low Density Lipoprotein Calc. 71 mg/dL; Potassium 3.9 mmol/L (3.3-5.1); Triglycerides 138 mg/dL; Very Low Density Lipoprotein 28 mg/dL (5-40); Vitamin D,25 Hydroxy 58.5 ng/mL (30-100); cholesterol:hdl ratio screen 2.67
[2025-05-24 15:34] LABS: Vitamin B12 823 pg/mL (180-914)
== END 2025-05-23 23:59 | disposition home or self-care (01) ==
LOC: MTLAB 08:52
PROVIDERS: PCP Family Medicine; Referring Provider Family Medicine; Visit Provider Family Medicine
DX: N95.9 Unspecified menopausal and perimenopausal disorder (principal); E03.9 Hypothyroidism, unspecified; E78.5 Hyperlipidemia, unspecified; E55.9 Vitamin D deficiency, unspecified; R47.9 Unspecified speech disturbances; Z13.1 Encounter for screening for diabetes mellitus
CPT/HCPCS: 36415; 80053; 80061; 82306; 82607; 83036; 84443; 85025

== ENCOUNTER → 2025-07-18 | Outpatient (CLI) | payer MEDICARE, OTHER, SELFPAY ==
--- NOTE | 2025-07-18 09:51 | RAD_ITS ---
PROCEDURE: CHEST PA AND LATERAL 07/18/2025 REASON FOR EXAM: PRODUCTIVE COUGH TECHNIQUE: Procedure Code: RADCXR Modality: DX Procedure: CHEST PA AND LATERAL FINDINGS: No focal consolidation. No pleural effusion or pneumothorax. Cardiac silhouette is within normal limits. No acute fractures. RAD/Chest PA and Lateral IMPRESSION: No focal consolidations. Reading Location: [facility]
--- OUTSIDE RECORDS SUMMARY | 2025-07-18 10:12 | XMS RPT_ITS | CCD ---
Author Organization [facility] Care Team Providers Care Solar Installation Technician Name Role Phone Beka CASH, Cinthia Chiquita Unavailable [phone] Perlita DAVIES, Kal Gonsalez Unavailable Katherine Gifford Primary Care Provider [phone] JESSICA FENTON Attending Unavailable JESSICA FENTON Referring Unavailable JOLLKATHERINE GRACIA Primary Care Unavailable JESSICA FENTON Attending Unavailable KATHERINE GIFFORD Referring Unavailable ИРИНА, KATHERINE VILLANUEVA Primary Care Unavailable Ирина DAVIES, Dr. Katherine Lopez Primary Care Provider Ирина DAVIES, Dr. Katherine Lopez Attending Provider Dr. Katherine Gifford MD Referring Provider Shelia Kohler Referring Unavailable Shelia Kohler Attending Unavailable Shelia Kohler Primary Care Unavailable Katherine Gifford Primary Care Unavailable Katherine Gifford Referring Unavailable JoKatherine benton Attending Unavailable Ирина, Katherine Lopez Referring Unavailable Jollsapna, Katherine Lopez Attending Unavailable Katherine Gifford Primary Care Unavailable Allergies Allergy Classification Reported Allergen(s) Allergy Type Date of Onset Reaction(s) Facility NSAIDs (2 sources) meloxicam Drug Allergy 05-20-20 12 Other: See Comments, Rash [facility] Sulfonamides (antibiotic) (1 source) Sulfonamides (Antibiotic) Drug Allergy 04-19-20 03 [facility] (10 sources) meloxicam Drug Allergy 06-28-20 14 [facility] Work Phone: (16 sources) Penicillins; Translations: [Penicillins] drug allergy 06-28-20 14 [facility] Work Phone: (9 sources) sulfADIAZINE Drug Allergy [facility] Work Phone: (1 source) Mold Extract; Translations: [MOLD] Drug Allergy 10-21-19 17 [facility] Work Phone: (1 source) Penicillin G Drug Allergy 10-21-19 [facility] Work Phone: (1 source) Pollen; Translations: [POLLEN] allergy to substance 10-28-19 [facility] Work Phone: (1 source) Sulfacetamide Drug Allergy 10-21-19 [facility] Work Phone: (1 source) WOOL; Translations: [WOOL] allergy to substance 10-21-19 [facility] Work Phone: (6 sources) Amoxicillin Drug Allergy 03-02-20 18 [facility] (8 sources) meloxicam; Translations: [MELOXICAM] Drug Allergy 05-20-20 12 Other: See Comments [facility] (7 sources) Sulfonamides (Antibiotic); Translations: [SULFA (SULFONAMIDE ANTIBIOTICS)] Allergy to substance 04-19-20 03 Unknown [facility] (2 sources) Naproxen; Translations: [NAPROXEN] Drug Allergy 01-22-20 17 [facility] (1 source) Sulfonamides (Antibiotic) Propensity to adverse reactions 04-19-20 03 [facility] (1 source) Amoxicillin Drug Allergy 03-02-20 18 [facility] (1 source) meloxicam Drug Allergy 03-02-20 18 [facility] (1 source) Sulfonamides (Antibiotic) Drug allergy (disorder) 03-02-20 18 [facility] Medications Current Medications Medication Drug Class(es) Dates Sig (Normalized) Sig (Original) acetaminophen 325 mg oral capsule (8 sources) Start: 08-30-2017 take 2 capsules by mouth every four hours as needed Acetaminophen 325 mg capsule Active 650 mg PO Q4H as needed August 30, 2017 1:00am Start: 08-30-2017 take 650 mg by mouth every four hours Acetaminophen Active 650 MG PO Q4H August 30, 2017 1:00am ACETAMINOPHEN 32 5 MG TABS prn ACETAMINOPHEN [id number] Cinthia Ireland 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 0 Active mhfesn-akielrrb-cbg C-E-herbal 1,250 mcg-50 mg -67.5 mg-15 mg chew (2 sources) take 2 tablets by mouth once daily lkqqom-ufbkjkcf-pje C-E-herbal 1,250 mcg-50 mg -67.5 mg-15 mg chew Take 2 tablets by mouth once daily. 0 Active cetirizine hydrochloride 10 mg oral capsule (16 sources) Histamine-1 Receptor Antagonist Start: 8 Cetirizine (Zyrtec) 10 mg capsule Active PO August 30, 2017 1:00am Start: 12-07-2016 ZYRTEC ALLERGY 10 MG CAPS as directed CETIRIZINE HCL [id number] Arlen Espinal LPN Start: 10-20-2016 take 1 tablet by rachel th once daily ZYRTEC ALLERGY 10 MG TABS 1 tablet by mouth once a day cetirizine [id number] Lizz Wright LPN fluticasone propionate 0.05 mg/actuat metered dose nasal spray (6 sources) Corticosteroid Start: 03-02-2018 Fluticasone Pr opionate (Flonase Allergy Relief) 50 mcg/actuation spray,suspension Active 1 NMA INTRANASAL daily March 02, 2018 12:00am Start: 03-02-2018 Fluticasone Pr opionate (Flonase Allergy Relief) 50 mcg/actuation spray,suspension Active 1 SPRAY INTRANASAL daily March 02, 2018 12:00am Lactobacillus Combination No.8 (Adult Probiotic) 3 billion cell capsule (6 sources) Start: 03-02-2018 take 3 capsules by mouth once daily Lactobacillus Combination No.8 (Adult Probiotic) 3 billion cell capsule Active 3000 NMA PO daily March 02, 2018 12:00am Start: 03-02-2018 take 3 capsules by m outh once daily Lactobacillus Combination No.8 (Adult Probiotic) 3 billion cell capsule Active 3000 MMU CELLS PO daily March 02, 2018 12:00am Start: 03-02-2018 take 3 capsules by m outh once daily Lactobacillus Combination No.8 (Adult Probiotic) 3 billion cell capsule Active 3000 MMU CELLS PO daily March 01, 2018 11:00pm levothyroxine sodium 0.025 mg oral tablet (20 sources) l-Thyroxine Start: 12-16-2016 End: 03-18-2025 LEVOTHYROXINE SODIUM 25 MCG TABS Take on daily with an extra 1/2 tablet on Wednesday LEVOTHYROXINE SODIUM [id number] Cinthia Ireland NP Start: 06-16-2016 End: 02-14-2018 take 1 tablet by mouth once daily, then take 1.5 tablets by mouth once daily Levothyroxine 25 mcg tablet Active 0 PO DAILY 96 February 14, 2018 11:00am 1 po daily except on take 1.5 tab PO DAILY Levothyroxine 25 mcg cap Take by mouth. 0 Active mecobalamin 1 mg sublingual tablet (6 sources) Start: 08-30-2017 Mecobalamin (V itamin B12) 1,000 mcg tablet,disintegrating Active 1000 ug SL daily August 30, 2017 1:00am melatonin 3 mg oral tablet (3 sources) melatonin 3 mg I ndications: Solar lentigo , Sun-damaged skin Take by mouth daily at bedtime. Uses PRN 0 Active take 1 tablet by mouth once nidia y RA MELATONIN 10 MG TABS 1 tablet by mouth once a day melatonin [id number] Nini Beach LPN Azregujz-Nqj-Wbwdoqa Gluconate (Centrum) 9 mg iron/15 mL liquid (6 sources) Start: 08-30-2017 take 1 mL by mouth once daily Ajpbcoaf-Xzy-Wbgpjts Gluconate (Centrum) 9 mg iron/15 mL liquid Active 15 mL PO daily August 30, 2017 1:00am Start: 08-30-2017 take 1 mL by mouth o nce daily Dauhkubi-Ctp-Jyonvts Gluconate (Centrum) 9 mg iron/15 mL liquid Active 15 ML PO daily August 30, 2017 1:00am Start: 08-30-2017 take 1 mL by mouth o nce daily Rdlsvxsa-Nem-Onidgoq Gluconate (Centrum) 9 mg iron/15 mL liquid Active 15 ML PO daily August 30, 2017 12:00am multivitamins(DAILY MULTIVITAMIN TAB) (2 sources) Start: 10-29-2008 multivitamins(DAILY MULTIVITAMIN TAB) Take one(1) tablet daily. 0 10/29/2008 Active MV-MIN/VIT C/GLU/JENNIFER HCL/HC124 ([place], LYSINE HCL, ORAL) (2 sources) MV-MIN/VIT C/GLU /JENNIFER HCL/HC124 ([place], LYSINE HCL, ORAL) Take by mouth. 0 Active naproxen sodium 220 mg oral capsule (8 sources) Nonsteroidal Anti-inflammator y Drug Start: 08-30-2017 take 1 capsule by mouth every twelve hours as needed Naproxen Sodium (Aleve) 220 mg capsule Active 220 mg PO Q12H as needed August 30, 2017 1:00am Saccharomyces boulardii (2 sources) take 1 tablet by mouth once daily SACCHAROMYCES BOULARDII (PROBIOTIC, S.BOULARDII, ORAL) Indications: Solar lentigo , Sun-damaged skin Take 1 tablet by mouth once daily. 0 Active sodium picosulfate-magnesium oxide-citric acid (CLENPIQ) 10 mg-3.5 gram- 12 gram/175 mL oral solution (1 source) Start: 01-12-2024 End: 01-14-2024 sodium picosulfate-magnesium oxide-citric acid (CLENPIQ) 10 mg-3.5 gram- 12 gram/175 mL oral solution Indications: History of colonic polyps Refer to instructions given by your provider 350 mL 0 01/12/2024 01/14/2024 Active Completed/Discontinued Medications Medication Drug Class(es) Dates Sig (Normalized) Sig (Original) acetaminophen 325 mg / HYDROcodone bitartrate 5 mg oral tablet (6 sources) Opioid Agonist Start: 06-16-2016 End: 08-30-2017 Hydrocodone-Acetami nophen 1 TABLET tablet Discontinued 1 {tbl} PO EVERY 6 HOURS NEEDED as needed for Pain June 16, 2016 1:00am August 30, 2017 9:28am Start: 06-16-2016 End: 08-30-2017 take 1 tablet by mouth every six hours as needed Hydrocodone-Acetaminophen Discontinued 1 TABLET PO EVERY 6 HOURS NEEDED June 16, 2016 1:00am August 30, 2017 9:28am apple cider vinegar 500 mg oral tablet (1 source) Start: 04-21-2021 take 1 tablet by mouth once daily APPLE CIDER VINEGAR 500 MG TABS 2 to 3 tablet by mouth once a day apple cider vinegar [id number] Nini Yong BERNALN Calcium (1 source) Phosphate Binder, Calcium Start: 04-21-2021 take 1 tablet by mouth once daily calcium 650 mg tablet 1 tablet by mouth once a day calcium 650 mg tablet Nini Yong BERNALN calcium carbonate 1250 mg oral tablet (8 sources) Start: 08-06-2014 End: 08-30-2017 take 1 tablet by mouth once daily Calcium Carbonate 500 MG tablet Discontinued 500 mg PO DAILY@0800 August 06, 2014 1:00am August 30, 2017 9:27am CALCIUM CARBONAT E (TUMS ORAL) Take by mouth. 0 Active calcium chloride 0.0014 meq/ml / potassium chloride 0.004 meq/ml / sodium chloride 0.103 meq/ml / sodium lactate 0.028 meq/ml injectable solution (1 source) Start: 2024 End: 2024 lactated ringers iv infusion CALCIUM-VITAMIN D-VITAMIN K (18 sources) take 1 tablet by mouth once daily [facility] CALCIUM SOFT CHEWS 500-1000-40 MG-UNT-MCG CHEW One tablet by mouth daily CALCIUM-VITAMIN D-VITAMIN K [id number] Chuy Brown End: 06-24-2016 take 1 tablet by mouth once daily [facility] CALCIUM SOFT CHEWS 500-1000-40 MG-UNT-MCG CHEW One tablet by mouth daily CALCIUM-VITAMIN D-VITAMIN K [id number] Ant Del Cid take 1 tablet by rachel th once daily [facility] CALCIUM SOFT CHEWS 500-1000-40 MG-UNT-MCG CHEW One tablet by mouth daily CALCIUM-VITAMIN D-VITAMIN K [id number] Chuy Brown End: 06-24-2016 take 1 tablet by mouth once daily [facility] CALCIUM SOFT CHEWS 500-1000-40 MG-UNT-MCG CHEW One tablet by mouth daily CALCIUM-VITAMIN D-VITAMIN K [id number] Ant Del Cid cholecalciferol 0.025 mg oral tablet (3 sources) Vitamin D Start: 12-25-2020 take 1 tablet by mouth once daily VITAMIN D3 25 MCG (1000 UT) TABS 1 tablet by mouth once a day cholecalciferol (vitamin d3) [id number] Lizz Wright LPN take 1 tablet by mouth once nidia y cholecalciferol (VITAMIN D-3) 400 unit tab Take 400 Units by mouth once daily. 0 Active chromium picolinate 1 mg oral tablet (1 source) Start: 04-21-2021 take 1 tablet by mouth once daily CHROMIUM PICOLINATE 1000 MCG TABS 1 tablet by mouth once a day chromium picolinate [id number] Lizz Wright LPN citric acid 90520 mg / magnesium oxide 3500 mg / picosulfate sodium 10 mg powder for oral solution (9 sources) Calculi Dissolution Agent, Anti-coagulant Start: 06-28-2014 End: 06-29-2014 PREPOPIK 10-3.5-12 MG-GM-GM PACK use as per instructions SOD PICOSULFATE-MAG OX-CIT ACD [id number] Jessica Fenton diphenhydrAMINE (3 sources) Histamine-1 Receptor Antagonist Start: 2024 End: 2024 diphenhydrAMINE 12.5-50 mg injection (BENADRYL) take 25 mg by mouth once daily d iphenhydramine HCl (BENADRYL ALLERGY ORAL) Take 25 mg by mouth once daily. 0 Active 1 ml fentaNYL 0.05 mg/ml injection (1 source) Opioid Agonist Start: 2024 End: 2024 fentaNYL 50 mcg/mL 25-100 mcg injection (SUBLIMAZE) fexofenadine hydrochloride 180 mg oral tablet (20 sources) Histamine-1 Receptor Antagonist Start: 04-19-2003 End: 08-30-2017 take 1 tablet by mouth once daily Fexofenadine 180 mg tablet Discontinued 180 mg PO DAILY August 06, 2014 1:00am August 30, 2017 9:27am Fiber (12 sources) Start: 06-24-2016 End: 06-01-2017 FIBER COMPLETE TABS FIBER [id number] Autumn Saldivar LPN Start: 06-24-2016 FIBER COMPLETE TABS FIBER [id number] Ant Del Cid Glucosamine (18 sources) take 1 tablet by rachel twice daily GLUCOSAMINE CAPS One tablet by mouth twice daily GLUCOSAMINE SULFATE CAPS [id number] Chuy Zhang Stephanie End: 06-24-2016 take 1 tablet by mouth twice daily GLUCOSAMINE CAPS One tablet by mouth twice daily GLUCOSAMINE SULFATE CAPS [id number] Ant Del Cid Lactobacillus acidophilus (1 source) Start: 11-02-2016 take 1 capsule by mouth once daily Probiotic 10 billion cell capsule 1 capsule by mouth once a day lactobacillus acidophilus [id number] Lizz Wright [facility] Lactobacillus Combination No.4 (4 sources) Start: 08-20-2014 End: 08-30-2017 Lactobacillus Combination No.4 Discontinued 1 EACH PO DAILY August 20, 2014 1:00am August 30, 2017 9:28am Start: 08-20-2014 End: 08-30-2017 Lactobacillus Combination No .4 Discontinued 1 EACH PO DAILY August 20, 2014 12:00am August 30, 2017 8:28am Lactobacillus Combination No.4 1 EACH capsule (2 sources) Start: 08-20-2014 End: 08-30-2017 take 1 capsule by mouth once daily Lactobacillus Combination No.4 1 EACH capsule Discontinued 1 NMA PO DAILY August 20, 2014 1:00am August 30, 2017 9:28am 5 ml midazolam 1 mg/ml injection (1 source) Benzodiazepine Start: 2024 End: 2024 midazolam 1-5 mg injection (VERSED) MULTIPLE VITAMINS-MINERALS (9 sources) Start: 06-24-2016 CENTRUM TABS MULTIPLE VITAMINS-MINERALS [id number] Ant Del Cid Multivitamin 1 EACH tablet (2 sources) Start: 06-16-2016 End: 08-30-2017 Multivitamin 1 EACH tablet Discontinued 1 NMA PO DAILY June 16, 2016 1:00am August 30, 2017 9:28am Multivitamin preparation (5 sources) Start: 04-21-2021 take 1 tablet by mouth once daily MULTI-VITAMINS TABS 1 tablet by mouth once a day multivitamin [id number] Lizz Wright LPN Start: 06-16-2016 End: 08-30-2017 Multivitamin Discontinued 1 EACH PO DAILY June 16, 2016 1:00am August 30, 2017 9:28am Start: 06-16-2016 End: 08-30-2017 Multivitamin Discontinued 1 EACH PO DAILY June 16, 2016 12:00am August 30, 2017 8:28am ondansetron 4 mg disintegrating oral tablet (6 sources) Serotonin-3 Receptor Antagonist Start: 06-16-2016 End: 08-30-2017 take 1 tablet by mouth every six hours as needed for nausea Ondansetron 4 MG tablet Discontinued 4 mg PO EVERY 6 HOURS NEEDED as needed for Nausea June 17, 2016 12:00am August 30, 2017 9:28am PROBIOTIC PRODUCT (18 sources) take 1 tablet by mouth twice daily [facility] CAPS One tablet by mouth twice daily PROBIOTIC PRODUCT [id number] Chuy Brown End: 06-24-2016 take 1 tablet by mouth twice daily [facility] CAPS One tablet by mouth twice daily PROBIOTIC PRODUCT [id number] Ant Del Cid take 1 tablet by rachel th twice daily [facility] CAPS One tablet by mouth twice daily PROBIOTIC PRODUCT [id number] Chuy Brown End: 06-24-2016 take 1 tablet by mouth twice daily [facility] CAPS One tablet by mouth twice daily PROBIOTIC PRODUCT [id number] Ant Del Cid vitamin b12 1 mg oral tablet (12 sources) Vitamin B12 Start: 12-25-2020 take 1 tablet by mouth once daily VITAMIN B-12 1000 MCG TABS 1 tablet by mouth once a day cyanocobalamin (vitamin b-12) 42079683876 Lizz Wright LPN Start: 06-24-2016 B-12 1000 MCG CAPS CYANOCOBALAMIN [id number] Ant Del Cid Cyanocobalamin ( VITAMIN B-12) 2,500 mcg subl Dissolve under the tongue. 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 Problems Active Problems Problem Classification Problem Date Documented Da te Episodic/Chronic Acquired foot deformities (1 source) Toe joint rigid; Translations: [Hallux rigidus, left foot] Onset: 12-25-2020 12-25-2020 Chronic Acquired foot deformities (1 source) Toe joint rigid; Translations: [Hallux rigidus, right foot] Onset: 12-25-2020 12-25-2020 Chronic Mood disorders (8 sources) Depressive disorder; Translations: [Major depressive disorder, single episode, unspecified] Onset: 12-16-2016 12-16-2016 Chronic Osteoarthritis (1 source) Arthropathy; Translations: [Unilateral primary osteoarthritis, right knee] Onset: 11-02-2016 11-02-2016 Chronic Other and unspecified benign neoplasm (3 sources) History of polyp of colon; Translations: [Personal history of colonic polyps] Onset: 2024 01-12-2024 Episodic Other and unspecified benign neoplasm (1 source) Personal history of colonic polyps; Translations: [History of colonic polyps] Onset: 2024 Episodic Other nervous system disorders (1 source) Aphasia; Translations: [Aphasia] Onset: 11-30-2024 Chronic Other nutritional; endocrine; and metabolic disorders (1 source) Obesity; Translations: [Obesity, unspecified] Onset: 11-11-2017 11-14-2017 Chronic Other screening for suspected conditions (not mental disorders or infectious disease) (10 sources) Encounter for screening for malignant neoplasm of colon; Translations: [Special screening for malignant neoplasms of colon] Onset: 05-31-2025 06-28-2014 Episodic Thyroid disorders (15 sources) Hypothyroidism; Translations: [Hypothyroidism, unspecified] Onset: 12-07-2016 12-08-2016 Chronic Thyroid disorders (6 sources) Thyroid dysfunction; Translations: [Disorder of thyroid, unspecified] 03-13-2018 Episodic Past or Other Problems Problem Classification Problem Date Documented Date Episodic/Chronic Acquired foot deformities (1 source) Musculoskeletal finding; Translations: [Other acquired deformities of left foot] Onset: 05-07-2021 05-07-2021 Episodic Allergic reactions (2 sources) Solar degeneration; 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 changes due to chronic exposure to nonionizing radiation] Onset: 11-06-2009 11-06-2009 Episodic Coagulation and hemorrhagic disorders (2 sources) Spontaneous ecchymosis; Translations: [Spontaneous ecchymoses] Onset: 12-30-2016 12-30-2016 Episodic Fracture of lower limb (9 sources) Nondisplaced fracture of lateral condyle of right tibia, initial encounter for closed fracture; Translations: [Closed fracture of upper end of tibia alone] Onset: 08-14-2016 08-28-2016 Episodic Joint disorders and dislocations; trauma-related (19 sources) Other tear of medial meniscus, current injury, right knee, subsequent encounter; Translations: [Other specified aftercare] Onset: 06-24-2016 07-16-2016 Episodic Other circulatory disease (2 sources) Telangiectasia disorder; Translations: [Nevus, non-neoplastic] Onset: 11-06-2009 11-06-2009 Episodic Other injuries and conditions due to external causes (1 source) Unspecified injury of left foot, initial encounter; Translations: [Knee, leg, ankle, and foot injury] Onset: 12-25-2020 12-25-2020 Episodic Other injuries and conditions due to external causes (1 source) At risk for falls ; Translations: [History of falling] Onset: 11-02-2016 11-02-2016 Episodic Other non-traumatic joint disorders (9 sources) Hemarthrosis of knee; Translations: [Hemarthrosis, right knee] Onset: 06-24-2016 07-01-2016 Episodic Other non-traumatic joint disorders (9 sources) Knee pain; Translations: [Pain in right knee] Onset: 06-24-2016 06-25-2016 Episodic Other nutritional; endocrine; and metabolic disorders (9 sources) Overweight; Translations: [Overweight] Onset: 12-07-2016 12-07-2016 Episodic Other nutritional; endocrine; and metabolic disorders (9 sources) Body mass index (BMI) 26.0-26.9, adult; Translations: [Body Mass Index 26.0-26.9, adult] Onset: 12-07-2016 12-07-2016 Episodic Other skin disorders (2 sources) Actinic keratosis; Translations: [Actinic keratosis] Onset: 11-06-2009 11-06-2009 Episodic Other skin disorders (2 sources) Seborrheic keratosis; Translations: [Other seborrheic keratosis] Onset: 11-06-2009 08-10-2011 Episodic Other skin disorders (2 sources) Solar lentigo; Translations: [Other melanin hyperpigmentation] Onset: 11-06-2009 08-10-2011 Episodic Other skin disorders (2 sources) Inflamed seborrheic keratosis; Translations: [Inflamed seborrheic keratosis] Onset: 08-11-2011 08-11-2011 Episodic Sprains and strains (19 sources) Sprain of anterior cruciate ligament of right knee, subsequent encounter; Translations: [Other specified aftercare] Onset: 06-24-2016 07-16-2016 Episodic Unclassified (1 source) Problem Results Test Name Value Interpretation Reference Range Facility Vitamin B12on 05-24-2025 Cobalamin (Vitamin B12) [Mass/Vol] 823 pg/mL Normal 180-914 [facility] Comment on above: Order Comment: OKSANA Malin ADD PER ORDER B12 Order Date: 05/19/24 Order Info: [id number] - CMP Order Date: 04/24/25 Order Info: [id number] - LIPID Order Info: [id number] - TSH Performed By: #### L [id number], L506.1001 #### [facility] [address] [place], [place], [id number] CBC W/Diff, Automatedon 04-26 Absolute Lymph 1.75 X10 3/uL Normal 0.83-4.51 [facility] Comment on above: Order Comment: Order Date: 05/19/24 Order Info: [id number] - CBCD Order Date: 04/24/25 Order Info: [id number] - CBC Performed By: #### L 100.0100 #### [facility] [address] [place], [place], [address] Absolute Neut 4.6 X10 3/uL Normal 2.0-7.7 [facility] Comment on above: Order Comment: Order Date: 05/19/24 Order Info: [id number] - CBCD Order Date: 04/24/25 Order Info: [id number] - CBC Performed By: #### L [id number] #### [facility] [address] [place], [address] Basophils/100 WBC (Bld) 0.6 % Normal 0-1 [facility] Comment on above: Order Comment: Order Date: 05/19/24 Order Info: [id number] - CBCD Order Date: 04/24/25 Order Info: [id number] - CBC Performed By: #### L 100.0100 #### [facility] [address] [place], [address] Eosinophils/100 WBC (Bld) 2.5 % Normal 0-5 [facility] Comment on above: Order Comment: Order Date: 05/19/24 Order Info: [id number] - CBCD Order Date: 04/24/25 Order Info: [id number] - CBC Performed By: #### L 100.0100 #### [facility] [address] [place], [address] Erythrocyte distribution width (RBC) [Ratio] 13.2 % Normal 11.6-14.6 [facility] Comment on above: Order Comment: Order Date: 05/19/24 Order Info: [id number] - CBCD Order Date: 04/24/25 Order Info: [id number] - CBC Performed By: #### L 100.0100 #### [facility] [address] [place], [address] Hematocrit (Bld) [Volume fraction] 39.4 % Normal 37-47 [facility] Comment on above: Order Comment: Order Date: 05/19/24 Order Info: [id number] - CBCD Order Date: 04/24/25 Order Info: [id number] - CBC Performed By: #### L 100.0100 #### [facility] [address] [place], [address] Hemoglobin (Bld) [Mass/Vol] 12.8 g/dL Normal 12.0-15.0 [facility] Comment on above: Order Comment: Order Date: 05/19/24 Order Info: [id number] - CBCD Order Date: 04/24/25 Order Info: [id number] - CBC Performed By: #### L 100.0100 #### [facility] [address] [place], [address] IG% 0.100 Normal 0.0-0.9 [facility] Comment on above: Order Comment: Order Date: 05/19/24 Order Info: [id number] - CBCD Order Date: 04/24/25 Order Info: [id number] - CBC Result Comment: IG% - Immature Granulocytes (promyelocytes, myelocytes and metamyelocytes) > 1% indicates that a LEFT SHIFT is Present. Performed By: #### L 100.0100 #### [facility] [address] [place], [address] Lymphocytes/100 WBC (Bld) 24.5 % Normal 19-41 [facility] Comment on above: Order Comment: Order Date: 05/19/24 Order Info: 0184-1 - CBCD Order Date: 04/24/25 Order Info: 74272-8 - CBC Performed By: #### L 100.0100 #### [facility] [address] [place], [address] MCH (RBC) [Entitic mass] 29.6 pg Normal 27.0-32.0 [facility] Comment on above: Order Comment: Order Date: 05/19/24 Order Info: 0184- - CBCD Order Date: 04/24/25 Order Info: 21691-6 - CBC Performed By: #### L 100.0100 #### [facility] [address] [place], [address] MCHC (RBC) [Mass/Vol] 32.5 g/dL Normal 32-36 [facility] Comment on above: Order Comment: Order Date: 05/19/24 Order Info: 0184-1 - CBCD Order Date: 04/24/25 Order Info: 25903-3 - CBC Performed By: #### L 100.0100 #### [facility] [address] [place], [address] MCV (RBC) [Entitic vol] 91.0 fL Normal 81-99 [facility] Comment on above: Order Comment: Order Date: 05/19/24 Order Info: 0184-1 - CBCD Order Date: 04/24/25 Order Info: 14290-0 - CBC Performed By: #### L 100.0100 #### [facility] [address] [place], [address] Monocytes/100 WBC (Bld) 7.8 % Normal 0-10 [facility] Comment on above: Order Comment: Order Date: 05/19/24 Order Info: 0184- - CBCD Order Date: 04/24/25 Order Info: 55012-5 - CBC Performed By: #### L 100.0100 #### [facility] [address] [place], [address] Neutrophils/100 WBC (Bld) 64.5 % Normal 47-70 [facility] Comment on above: Order Comment: Order Date: 05/19/24 Order Info: 0184-1 - CBCD Order Date: 04/24/25 Order Info: 91424-2 - CBC Performed By: #### L 100.0100 #### [facility] [address] [place], [address] Nucleated RBC (Bld) [#/Vol] 0 10*3/uL Normal 0-5 [facility] Comment on above: Order Comment: Order Date: 05/19/24 Order Info: 0184-1 - CBCD Order Date: 04/24/25 Order Info: 28704-5 - CBC Performed By: #### L 100.0100 #### [facility] [address] [place], [address] Platelet mean volume (Bld) [Entitic vol] 10.5 fL Normal 6.2-12.0 [facility] Comment on above: Order Comment: Order Date: 05/19/24 Order Info: 0184-1 - CBCD Order Date: 04/24/25 Order Info: 84372-0 - CBC Performed By: #### L 100.0100 #### [facility] [address] [place], [address] Platelets (Bld) [#/Vol] 319 10*3/uL Normal 150-450 [facility] Comment on above: Order Comment: Order Date: 05/19/24 Order Info: 0184-1 - CBCD Order Date: 04/24/25 Order Info: 02747-5 - CBC Performed By: #### L 100.0100 #### [facility] [address] [place], [address] RBC (Bld) [#/Vol] 4.33 10*6/uL Normal 4.2-5.4 [facility] Comment on above: Order Comment: Order Date: 05/19/24 Order Info: 0184-1 - CBCD Order Date: 04/24/25 Order Info: 05580-7 - CBC Performed By: #### L 100.0100 #### [facility] [address] [place], [address] RDW SD 44.6 fl High 35.1-43.9 [facility] Comment on above: Order Comment: Order Date: 05/19/24 Order Info: 0184-1 - CBCD Order Date: 04/24/25 Order Info: 30819-2 - CBC Performed By: #### L 100.0100 #### [facility] [address] [place], [address] WBC (Bld) [#/Vol] 7.2 10*3/uL Normal 4.4-11.0 [facility] Comment on above: Order Comment: Order Date: 05/19/24 Order Info: 0184-1 - CBCD Order Date: 04/24/25 Order Info: 94446-4 - CBC Performed By: #### L 100.0100 #### [facility] [address] [place], [address] Comprehensive Metabolic Prof ilon 05-23-2025 Albumin [Mass/Vol] 4.2 g/dL Normal 3.4-4.8 [facility] Comment on above: Order Comment: Order Date: 05/19/24 Order Info: 0786-1 - CMP Order Date: 04/24/25 Order Info: 06827-6 - LIPID Order Info: 3015-09 - TSH Performed By: #### L 500.4100, L500.4050, L501.9520 #### [facility] [address] [place], [address] Albumin/Globulin [Mass ratio] 1.5 {ratio} Normal 0.9-2.4 [facility] Comment on above: Order Comment: Order Date: 05/19/24 Order Info: 785-07 - CMP Order Date: 04/24/25 Order Info: 45405-9 - LIPID Order Info: 3015-09 - TSH Performed By: #### L 500.4100, L500.4050, L501.9520 #### [facility] [address] [place], [address] ALK PHOS 109 U/L High 35-104 [facility] Comment on above: Order Comment: Order Date: 05/19/24 Order Info: 0786- - CMP Order Date: 04/24/25 Order Info: 92647-3 - LIPID Order Info: 3015-09 - TSH Performed By: #### L 500.4100, L500.4050, L501.9520 #### [facility] [address] [place], [address] ALT [Catalytic activity/Vol] 12 U/L Normal <=34 [facility] Comment on above: Order Comment: Order Date: 05/19/24 Order Info: 0786-1 - CMP Order Date: 04/24/25 Order Info: 97036-2 - LIPID Order Info: 3015-09 - TSH Performed By: #### L 500.4100, L500.4050, L501.9520 #### [facility] [address] [place], [address] AST [Catalytic activity/Vol] 25 U/L Normal <=31 [facility] Comment on above: Order Comment: Order Date: 05/19/24 Order Info: 0786-1 - CMP Order Date: 04/24/25 Order Info: 88578-0 - LIPID Order Info: 3 - TSH Performed By: #### L 500.4100, L500.4050, L501.9520 #### [facility] [address] [place], [address] Bilirubin [Mass/Vol] 0.38 mg/dL Normal 0.00-1.30 [facility] Comment on above: Order Comment: Order Date: 05/19/24 Order Info: 0786- - CMP Order Date: 04/24/25 Order Info: 21449-3 - LIPID Order Info: 30163 - TSH Performed By: #### L 500.4100, L500.4050, L501.9520 #### [facility] [address] [place], [address] BUN/CRE 16.2 RATIO Normal 10-20 [facility] Comment on above: Order Comment: Order Date: 05/19/24 Order Info: 0786-1 - CMP Order Date: 04/24/25 Order Info: 34357-0 - LIPID Order Info: 3016 - TSH Performed By: #### L 500.4100, L500.4050, L501.9520 #### [facility] [address] [place], [address] Calcium [Mass/Vol] 9.8 mg/dL Normal 7.6-11.0 [facility] Comment on above: Order Comment: Order Date: 05/19/24 Order Info: 0786-1 - CMP Order Date: 04/24/25 Order Info: 86863-1 - LIPID Order Info: 3016-3 - TSH Performed By: #### L 500.4100, L500.4050, L501.9520 #### [facility] [address] [place], [address] Chloride [Moles/Vol] 104 mmol/L Normal 98-108 [facility] Comment on above: Order Comment: Order Date: 05/19/24 Order Info: 0786-1 - CMP Order Date: 04/24/25 Order Info: 80094-3 - LIPID Order Info: 3015-3 - TSH Performed By: #### L 500.4100, L500.4050, L501.9520 #### [facility] [address] [place], [address] CO2 [Moles/Vol] 28.3 mmol/L Normal 21.0-32.0 [facility] Comment on above: Order Comment: Order Date: 05/19/24 Order Info: 0786- - CMP Order Date: 04/24/25 Order Info: 42376-7 - LIPID Order Info: 301-3 - TSH Performed By: #### L 500.4100, L500.4050, L501.9520 #### [facility] [address] [place], [address] Creatinine [Mass/Vol] 0.89 mg/dL Normal 0.70-1.20 [facility] Comment on above: Order Comment: Order Date: 05/19/24 Order Info: 0786-1 - CMP Order Date: 04/24/25 Order Info: 87927-9 - LIPID Order Info: 3016-3 - TSH Performed By: #### L 500.4100, L500.4050, L501.9520 #### [facility] [address] [place], [address] GAP 11 Normal 5-15 [facility] Comment on above: Order Comment: Order Date: 05/19/24 Order Info: 0786-1 - CMP Order Date: 04/24/25 Order Info: 29536-8 - LIPID Order Info: 3016-3 - TSH Performed By: #### L 500.4100, L500.4050, L501.9520 #### [facility] [address] [place], [address] GFR/1.73 sq M.predicted among non-blacks MDRD (S/P/Bld) [Vol rate/Area] 69 mL/min/{1.73_m2} Normal >60 [facility] Comment on above: Order Comment: Order Date: 05/19/24 Order Info: 0786-1 - CMP Order Date: 04/24/25 Order Info: 67249-2 - LIPID Order Info: 3 - TSH Result Comment: mL/m in/1.73m2 CKD-EPI Creatinine Equation (2020) Performed By: #### L 500.4100, L500.4050, L501.9520 #### [facility] [address] [place], [address] Globulin (S) [Mass/Vol] 2.9 g/dL Normal 2.2-4.2 [facility] Comment on above: Order Comment: Order Date: 05/19/24 Order Info: 0786- - CMP Order Date: 04/24/25 Order Info: 20065-7 - LIPID Order Info: 3015-09 - TSH Performed By: #### L 500.4100, L500.4050, L501.9520 #### [facility] [address] [place], [address] Glucose [Mass/Vol] 83 mg/dL Normal 70-99 [facility] Comment on above: Order Comment: Order Date: 05/19/24 Order Info: 0786- - CMP Order Date: 04/24/25 Order Info: 11041-2 - LIPID Order Info: 3 - TSH Performed By: #### L 500.4100, L500.4050, L501.9520 #### [facility] [address] [place], [address] Potassium [Moles/Vol] 3.9 mmol/L Normal 3.3-5.1 [facility] Comment on above: Order Comment: Order Date: 05/19/24 Order Info: 0786-1 - CMP Order Date: 04/24/25 Order Info: 13419-3 - LIPID Order Info: 30163 - TSH Performed By: #### L 500.4100, L500.4050, L501.9520 #### [facility] [address] [place], [address] Sodium [Moles/Vol] 143 mmol/L Normal 133-145 [facility] Comment on above: Order Comment: Order Date: 05/19/24 Order Info: 0786-1 - CMP Order Date: 04/24/25 Order Info: 84231-2 - LIPID Order Info: 3016 - TSH Performed By: #### L 500.4100, L500.4050, L501.9520 #### [facility] [address] [place], [address] T PROT 7.1 g/dL Normal 5.9-8.4 [facility] Comment on above: Order Comment: Order Date: 05/19/24 Order Info: 0786-1 - CMP Order Date: 04/24/25 Order Info: 90954-4 - LIPID Order Info: 30163 - TSH Performed By: #### L 500.4100, L500.4050, L501.9520 #### [facility] [address] [place], [address] Urea nitrogen [Mass/Vol] 14 mg/dL Normal 4-19 [facility] Comment on above: Order Comment: Order Date: 05/19/24 Order Info: 0786-1 - CMP Order Date: 04/24/25 Order Info: 11139-8 - LIPID Order Info: 30163 - TSH Performed By: #### L 500.4100, L500.4050, L501.9520 #### [facility] [address] [place], [address] Hemoglobin A1con 05-23-2025 HbA1c (Bld) [Mass fraction] 5.6 % Normal <=5.6 [facility] Comment on above: Order Comment: Order Date: 05/19/24 Order Info: 4548-4 - A1C Result Comment: Norm al < 5.7 % Prediabetic 5.7 - 6.4 % Diabetic >or= 6.5 % Please note range changes. Performed By: #### L 501.9985 #### [facility] [address] [place], [address] Lipid Profileon 05-23-2025 CHOL:HDL 2.67 Normal [facility] Comment on above: Order Comment: Order Date: 05/19/24 Order Info: 0786-1 - CMP Order Date: 04/24/25 Order Info: 63193-0 - LIPID Order Info: 3016-3 - TSH Performed By: #### L 500.4100, L500.4050, L501.9520 #### [facility] [address] [place], [address] Cholesterol [Mass/Vol] 152 mg/dL Normal <=200 [facility] Comment on above: Order Comment: Order Date: 05/19/24 Order Info: 0786-1 - CMP Order Date: 04/24/25 Order Info: 19788-8 - LIPID Order Info: 3016-3 - TSH Result Comment: Chol esterol level, Desirable <200 mg/dL Borderline high cholesterol 200-239 mg/dL High cholesterol >=240 mg/dL Recommendations of the NCEP Adult Treatment Panel for the following risk-cutoff thresholds for the [place] population. Performed By: #### L 500.4100, L500.4050, L501.9520 #### [facility] [address] [place], [place], [address] Cholesterol in HDL [Mass/Vol] 57 mg/dL Normal [facility] Comment on above: Order Comment: Order Date: 05/19/24 Order Info: 0786-1 - CMP Order Date: 04/24/25 Order Info: 36954-8 - LIPID Order Info: 3016-3 - TSH Result Comment: [place] on[place] Cholesterol Education Program (NCEP) guidelines: <40 mg/dL: Low HDL-cholesterol (major risk factor for CHD) >= 60 mg/dL: High HDL-cholesterol (negative risk factor for CHD) HDL-cholesterol is affected by a number of factors, e.g. smoking, exercise, hormones, sex and age. Performed By: #### L 500.4100, L500.4050, L501.9520 #### [facility] [address] [place], [address] Cholesterol in LDL [Mass/Vol] 71 mg/dL Normal [facility] Comment on above: Order Comment: Order Date: 05/19/24 Order Info: 0786-1 - CMP Order Date: 04/24/25 Order Info: 51955-1 - LIPID Order Info: 3016-3 - TSH Result Comment: Bord upjrgj=738-694 mg/dL Higher Kbhy=365 mg/dL or greater Patrick Equation 2020 for LDL-C Performed By: #### L 500.4100, L500.4050, L501.9520 #### [facility] [address] [place], [address] Cholesterol in VLDL [Mass/Vol] 28 mg/dL Normal 5-40 [facility] Comment on above: Order Comment: Order Date: 05/19/24 Order Info: 0786-1 - CMP Order Date: 04/24/25 Order Info: 20591-3 - LIPID Order Info: 3016-3 - TSH Performed By: #### L 500.4100, L500.4050, L501.9520 #### [facility] [address] [place], [address] Triglyceride [Mass/Vol] 138 mg/dL Normal [facility] Comment on above: Order Comment: Order Date: 05/19/24 Order Info: 0786-1 - CMP Order Date: 04/24/25 Order Info: 28044-1 - LIPID Order Info: 3016-3 - TSH Result Comment: The drugs N-Acetylcysteine and Metamizole may falsely depress this assay. Normal range: <150 mg/dL Borderline High: 150-199 mg/dL High: 200-499 mg/dL Very High: >500 mg/dL Performed By: #### L 500.4100, L500.4050, L501.9520 #### [facility] [address] [place], [place], [address] Thyroid Stim Hormone (TSH)on 05-23-2025 TSH 3.270 uIU/mL Normal 0.300-4.200 [facility] Comment on above: Order Comment: Order Date: 05/19/24 Order Info: 0786-1 - CMP Order Date: 04/24/25 Order Info: 47739-4 - LIPID Order Info: 3016-3 - TSH Performed By: #### L 500.4100, L500.4050, L501.9520 #### [facility] [address] [place], [place], [address] Vitamin D,25 Hydroxyon 05-23 Vitamin D 25-OH 58.5 ng/mL Normal 30-100 [facility] Comment on above: Order Comment: Order Date: 05/19/24 Order Info: 0786-1 - CMP Order Date: 04/24/25 Order Info: 00464-0 - LIPID Order Info: 3016-3 - TSH Result Comment: Marlene min D Status Deficiency: <20 ng/mL (50nmol/L) Insufficiency: 20-30 ng/mL (50-75 nmol/L) Sufficiency: 30-100 ng/mL (75-250 nmol/L) Toxicity: >100 ng/mL (>250 nmol/L) Performed By: #### L 503.0106, L506.1001 #### [facility] [address] [place], [place], [address] Breast imaging reportOrdered By: Sonja Lamb on 11-29-2024 Study report [facility] Services [address] [place] [address] SCRN MAMM (CAD)W/HENRIK BILAT MR#: [id number] Acct: [id number] Name: YOSELYN ANGUIANO Rep #: [id number] : 1950 F 74 From: Jhony Munoz MD PCP: Dr. Katherine Gifford MD Status: REG CLI Study:SCRN MAMM (CAD)W/HENRIK BILAT Date of Exa m: 11/29/24 Exam# [id number] Ordering Dr: Katherine Gifford MD EXAM: SCRN MAMM (CAD)W/HENRIK BILAT DATE: 11/29/2024 CLINICAL HISTORY: F, Age 74 y/o , SCREENING BREAST CANCER RISK ASSESSMENT: Not reported TECHNIQUE: Bilateral screening digital breast tomosynthesis with 2D and 3D images. Computeraided detection. COMPARISON: Prior exam(s) were compared FINDINGS: TISSUE DENSITY: The breast tissue is heterogenously dense, which may obscure small masses. Bilateral Breast Mammographic Findings: No suspicious masses, calcifications or other abnormalities are identified. BI/SCRN MAMM (CAD)W/HENRIK BILAT IMPRESSION: OVERALL FINAL ASSESSMENT: BIRADS 1 NEGATIVE RECOMMENDATION: Routine annual follow-up in 1 Year A letter with findings and recommendations will be mailed to the patient. Reading Location: [id number] CC: Dr. Katherine Gifford MD ~ Biofuels Engineering Manager: Signed [facility] SCRN MAMM (CAD)W/HENRIK BILATo n 11-29-2024 SCRN MAMM (CAD)W/HENRIK BILAT [facility] Services [address] [place], [place] [address] SCRN MAMM (CAD)W/HENRIK BILAT MR#: [id number] Acct: [id number] Name: YOSELYN ANGUIANO Rep #: [id number] : 1950 F 74 From: Sonja Villa i, MD PCP: Dr. Katherine Gifford MD Status: REG CLI Study: SCRN MAMM (CAD)W/HENRIK BILAT Date of Exam: 02/16 Exam# [id number] Ordering Dr: Katherine Gifford MD EXAM: SCRN MAMM (CAD)W/HENRIK BILAT DATE: 11/29/2024 CLINICAL HISTORY: F, Age 74 y/o , SCREENING BREAST CANCER RISK ASSESSMENT: Not reported TECHNIQUE: Bilateral screening digital breast tomosynthesis with 2D and 3D images. Computer aided detection. COMPARISON: Prior exam(s) were compared FINDINGS: TISSUE DENSITY: The breast tissue is heterogenously dense, which may obscure small masses. Bilateral Breast Mammographic Findings: No suspicious masses, calcifications or other abnormalities are identified. BI/SCRN MAMM (CAD)W/HENRIK BILAT IMPRESSION: OVERALL FINAL ASSESSMENT: BIRADS 1 NEGATIVE RECOMMENDATION: Routine annual follow-up in 1 Year A letter with findings and recommendations will be mailed to the patient. Reading Location: [facility] CC: Dr. Katherine Gifford MD [employer]fu[employer] Engineering Manager: Signed Normal [facility] Magnetic resonance imaging r eportOrdered By: Luke Staley on 11-25-2024 Study report [facility] Services [address] [place] [address] Brain without Contrast MR#: [id number] Acct: [id number] Name: YOSELYN ANGUIANO Rep #: [id number] : 1950 F 74 From: Estrella Staley MD PCP: Dr. Katherine Gifford MD Status: REG CLI Study:Brain without Contrast Date of Exam: 11/24/24 Exam# [id number] Ordering Dr: Katherine Gifford MD PROCEDURE: BRAIN WITHOUT CONTRAST 11/24/2024 REASON FOR EXAM: SPEECH CHANGES TECHNIQUE: Noncontrast brain MRI. Multiplanar and multisequence images were obtained. COMPARISON: CT brain 05/27/2024 FINDINGS: Brain: Moderate cerebral atrophy and chronic periventricular white matter disease. No suspicious intracranial mass. No evidence of an acute infarct. No intracranial hemorrhage. Ventricles: Consistent with the overall degree of cerebral atrophy. Major Intracranial Vessels: Major intracranial vessels demonstrate normal flow voids. Sinuses: Mild paranasal sinus mucosal thickening. Mastoids: Mastoid air cells are clear. Craniocervical junction is within normal limits. No suspicious marrow replacement process. Skull base is unremarkable. MRI/Brain without Contrast IMPRESSION: No acute intracranial abnormality. Chronic microvascular ischemia and involutional changes. Reading [facility] CC: Dr. Katherine Gifford MD ~ Biofuels Engineering Manager: Signed [facility] Brain without Contraston Brain without Contrast [facility] Services [address] [place], [place] [address] Brain without Contrast MR#: [id number] Acct: [id number] Name: YOSELYN ANGUIANO Rep #: [id number] : 1950 F 74 From: Luke malin MD PCP: Dr. Katherine Gifford MD Status: REG CLI Study: Brain without Contrast Date of Exam: 11/24/24 Exam# [id number] Ordering Dr: Katherine Gifford MD PROCEDURE: BRAIN WITHOUT CONTRAST 11/24/2024 REASON FOR EXAM: SPEECH CHANGES TECHNIQUE: Noncontrast brain MRI. Multiplanar and multisequence images were obtained. COMPARISON: CT brain 05/27/2024 FINDINGS: Brain: Moderate cerebral atrophy and chronic periventricular white matter disease. No suspicious intracranial mass. No evidence of an acute infarct. No intracranial hemorrhage. Ventricles: Consistent with the overall degree of cerebral atrophy. Major Intracranial Vessels: Major intracranial vessels demonstrate normal flow voids. Sinuses: Mild paranasal sinus mucosal thickening. Mastoids: Mastoid air cells are clear. Craniocervical junction is within normal limits. No suspicious marrow replacement process. Skull base is unremarkable. MRI/Brain without Contrast IMPRESSION: No acute intracranial abnormality. Chronic microvascular ischemia and involutional changes. Reading Location: [facility] CC: Dr. Katherine Gifford MD Biofuels Engineering Manager: Signed Normal [facility] [id number] 2024 [id number] HNO ID: [id number] Author: ISABEL ALVAREZ RN Service: ? Author Type: Registered Nurse Type: [id number] Filed: 2024 12:33 Note Text: Pt. arrived to phase 2 resting on left side. SR up x 2, call light in reach. Isabel Alvarez RN Normal [facility] Colonoscopyon 2024 Colonoscopy [place] [facility] Gastrointestinal Endoscopy Patient Name: Yoselyn Anguiano Procedure Date: 2024 11:38 AM Date of : 1950 Admit Type: Outpatient Age: 74 Gender: Female Note Status: Finalized Procedure: Colonoscopy - screening high risk Indications: High risk colon cancer surveillance: Personal history of colonic polyps Providers: Jessica Fentno MD Patient Profile: Refer to note in patient chart for documentation of history and physical. Last Colonoscopy: 2018. Referring Physician: Jessica Fenton MD (Referring MD) Medicines: Midazolam 3 mg IV, Fentanyl 50 micrograms IV, Diphenhydramine 50 mg IV Complications: No immediate complications. Requesting Provider: Procedure: Pre-Anesthesia Assessment: - Prior to the procedure, a History and Physical was performed, and patient medications and allergies were reviewed. The patient is competent. The risks and benefits of the procedure and the sedation options and risks were discussed with the patient. All questions were answered and informed consent was obtained. Patient identification and proposed procedure were verified by the physician in the pre-procedure area. Mental Status Examination: alert and oriented. Airway Examination: normal oropharyngeal airway and neck mobility. Respiratory Examination: clear to auscultation. CV Examination: normal. Prophylactic Antibiotics: The patient does not require prophylactic antibiotics. Prior Anticoagulants: The patient has taken no anticoagulant or antiplatelet agents. ASA Grade Assessment: II - A patient with mild systemic disease. After reviewing the risks and benefits, the patient was deemed in satisfactory condition to undergo the procedure. The anesthesia plan was to use moderate sedation / analgesia (conscious sedation). Immediately prior to administration of medications, the patient was re-assessed for adequacy to receive sedatives. The heart rate, respiratory rate, oxygen saturations, blood pressure, adequacy of pulmonary ventilation, and response to care were monitored throughout the procedure. The physical status of the patient was re-assessed after the procedure. After I obtained informed consent, the scope was passed under direct vision. Throughout the procedure, the patient's blood pressure, pulse, and oxygen saturations were monitored continuously. The Colonoscope was introduced through the anus and advanced to the cecum, identified by the appendiceal orifice, IC valve and transillumination. The appendiceal orifice and the rectum were photographed. The colonoscopy was performed with ease. The patient tolerated the procedure well. The quality of the bowel preparation was adequate to identify polyps greater than 5 mm in size. Moderate Sedation: The administration of moderate sedation was initiated at 11:57 AM. Moderate (conscious) sedation was personally administered by the endoscopist. The following parameters were monitored: oxygen saturation, heart rate, blood pressure, respiratory rate, EKG, adequacy of pulmonary ventilation, and response to care. Total physician intraservice time was 17 minutes. Findings: The perianal and digital rectal examinations were normal. Non-bleeding internal hemorrhoids were found. Multiple small-mouthed diverticula were found in the sigmoid colon. Impression: - Non-bleeding internal hemorrhoids. - Diverticulosis in the sigmoid colon. - No specimens collected. Recommendation: - Discharge patient to home (ambulatory). - Resume previous diet. - Continue present medications. - Repeat colonoscopy in 5 years for surveillance for history of colon polyp - Return to primary care physician PRN. - Patient has a contact number available for emergencies. The signs and symptoms of potential delayed complications were discussed with the patient. Return to normal activities tomorrow. Written discharge instructions were provided to the patient. Procedure Code(s): --- Professional --- 58750, Colonoscopy, flexible; diagnostic, including collection of specimen(s) by brushing or washing, when performed (separate procedure) [address], 59, Moderate sedation services provided by the same physician or other qualified health hourly caregiver performing the diagnostic or therapeutic service that the sedation supports, requiring the presence of an independent trained observer to assist in the monitoring of the patient's level of consciousness and physiological status; initial 15 minutes of intraservice time, patient age 5 years or older Diagnosis Code(s): --- Professional --- K57.30, Diverticulosis of large intestine without perforation or abscess without bleeding K64.8, Other hemorrhoids Z12.11, Encounter for screening for malignant neoplasm of colon Z86.010, Personal history of colonic polyps CPT copyright 2020 [employer]. All rights reserved. The codes do (more content not included)... Normal [facility] Colonoscopy Study observatio non 2024 [facility] Gastrointestinal Endoscopy Patient Name: Yoselyn Anguiano Procedure Date: 2024 11:38 AM Date of : 1950 Admit Type: Outpatient Age: 74 Gender: Female Note Status: Finalized Procedure: Colonoscopy - screening high risk Indications: High risk colon cancer surveillance: Personal history of colonic polyps Providers: Jessica Fenton MD Patient Profile: Refer to note in patient chart for documentation of history and physical. Last Colonoscopy: 2019. Referring Physician: Jessica Fenton MD (Referring MD) Medicines: Midazolam 3 mg IV, Fentanyl 50 micrograms IV, Diphenhydramine 50 mg IV Complications: No immediate complications. Requesting Provider: Procedure: Pre-Anesthesia Assessment: - Prior to the procedure, a History and Physical was performed, and patient medications and allergies were reviewed. The patient is competent. The risks and benefits of the procedure and the sedation options and risks were discussed with the patient. All questions were answered and informed consent was obtained. Patient identification and proposed procedure were verified by the physician in the pre-procedure area. Mental Status Examination: alert and oriented. Airway Examination: normal oropharyngeal airway and neck mobility. Respiratory Examination: clear to auscultation. CV Examination: normal. Prophylactic Antibiotics: The patient does not require prophylactic antibiotics. Prior Anticoagulants: The patient has taken no anticoagulant or antiplatelet agents. ASA Grade Assessment: II - A patient with mild systemic disease. After reviewing the risks and benefits, the patient was deemed in satisfactory condition to undergo the procedure. The anesthesia plan was to use moderate sedation / analgesia (conscious sedation). Immediately prior to administration of medications, the patient was re-assessed for adequacy to receive sedatives. The heart rate, respiratory rate, oxygen saturations, blood pressure, adequacy of pulmonary ventilation, and response to care were monitored throughout the procedure. The physical status of the patient was re-assessed after the procedure. After I obtained informed consent, the scope was passed under direct vision. Throughout the procedure, the patient's blood pressure, pulse, and oxygen saturations were monitored continuously. The Colonoscope was introduced through the anus and advanced to the cecum, identified by the appendiceal orifice, IC valve and transillumination. The appendiceal orifice and the rectum were photographed. The colonoscopy was performed with ease. The patient tolerated the procedure well. The quality of the bowel preparation was adequate to identify polyps greater than 5 mm in size. Moderate Sedation: The administration of moderate sedation was initiated at 11:57 AM. Moderate (conscious) sedation was personally administered by the endoscopist. The following parameters were monitored: oxygen saturation, heart rate, blood pressure, respiratory rate, EKG, adequacy of pulmonary ventilation, and response to care. Total physician intraservice time was 17 minutes. Findings: The perianal and digital rectal examinations were normal. Non-bleeding internal hemorrhoids were found. Multiple small-mouthed diverticula were found in the sigmoid colon. Impression: - Non-bleeding internal hemorrhoids. - Diverticulosis in the sigmoid colon. - No specimens collected. Recommendation: - Discharge patient to home (ambulatory). - Resume previous diet. - Continue present medications. - Repeat colonoscopy in 5 years for surveillance for history of colon polyp - Ret (more content not included)... PROVATION [facility] Radiology Study observation (narrative) [facility] HISTORY PHYSICALon HISTORY PHYSICAL HNO ID: [id number] Author: JESSICA FENTON MD Service: General Surgery Author Type: Physician Type: H&P Filed: 2024 11:42 Note Text: HISTORY AND PHYSICAL Yoselyn Anguiano 1950 REFERRING PHYSICIAN: Katherine Gifford MD CHIEF COMPLAINT: New Patient (colonoscopy consult 5 year) HPI: The patient is a 68 year old female presents with history of colon polyps. She requires surveillance colonoscopy. Had colonoscopy 5 years ago with findings of tubular adenoma, subcentimeter-size d in the sigmoid colon. Denies blood in stools Denies abdominal pain Denies changes in bowel habits PAST MEDICAL HISTORY Diagnosis Date Allergic rhinitis, cause unspecified PAST SURGICAL HISTORY Procedure Laterality Date ASPIRATION BREAST CYST 02/07/2007 right breast under u/s guidance BX OF BREAST; NEEDLE CORE 11/12/2008 left breast BX OF BREAST; NEEDLE CORE 11/11/2009 left breast REMOVE TONSILS/ADENOIDS,< 12 Y/O ACL surgery 2014 Current Outpatient Medications: SACCHAROMYCES BOULARDII (PROBIOTIC, S.BOULARDII, ORAL) Take 1 tablet by mouth once daily. melatonin 3 mg Take by mouth daily at bedtime. Uses PRN biotin forte 3 mg tab tablet Take 1 tablet by mouth once daily. Levothyroxine 25 mcg cap Take by mouth. Cyanocobalamin (VITAMIN B-12) 2,500 mcg subl Dissolve under the tongue. naproxen sodium (ALEVE) 220 mg cap Take by mouth. ASPIRIN/ACETAMINOP HEN/CAFFEINE (EXCEDRIN MIGRAINE ORAL) Take by mouth. MV-MIN/VIT C/GLU/JENNIFER HCL/HC124 ([place]NE, LYSINE HCL, ORAL) Take by mouth. CALCIUM CARBONATE (TUMS ORAL) Take by mouth. multivitamins(NIDIA Y MULTIVITAMIN TAB) Take one(1) tablet daily. FARHAT 180MG TABLET takes 1 tablet per day not sure of dosage CLENPIQ 10 mg-3.5 gram -12 gram/160 mL soln Use as directed. ALLERGIES: Mobic [Meloxicam]; Naproxen; Sulfa (Sulfonamide Antibiotics) PERSONAL HISTORY: Social History Socioeconomic History Marital status: Spouse name: devin Number of children: 2 Years of education: Not on file Highest education level: Not on file Social Needs Financial resource strain: Not on file Food insecurity - worry: Not on file Food insecurity - inability: Not on file Transportation needs - medical: Not on file Transportation needs - non-medical: Not on file Occupational History Employer: [employer] Tobacco Use Smoking status: Never Smoker Smokeless tobacco: Never Used Substance and Sexual Activity Alcohol use: No Drug use: No Sexual activity: Not on file Other Topics Concerns: Not on file Social History Narrative Not on file FAMILY HISTORY Problem Relation Age of Onset other (TIA) Mother Breast Cancer Maternal Aunt Dx. @ 65 , at 82 other (CVA) Brother other (CVA) Maternal Grandmother Diabetes Maternal Grandfather other (stomach cancer) Paternal Grandfather REVIEW OF SYSTEMS: General - denies fevers, denies weight loss Cardiovascular - denies chest pain, denies history of [place] Pulmonary - denies shortness of breath, denies coughing up blood Gastrointestinal - denies abdominal pain, denies changes in bowel habits, denies blood in stools Neurological - denies seizures Genitourinary - denies burning with urination Hematological - denies spontaneous/prolon ged bleeding Skin - denies nonhealing skin wounds Musculoskeletal - has some neck arthritis Endocrine - denies diabetes Psychological - denies hallucinations PHYSICAL EXAMINATION: General: The patient is 68 year old female, well nourished, well hydrated in no acute distress. The patient is oriented to time, place, and person. VITALS: Blood pressure 110/76, pulse 73, temperature 36.1 ?C (97 ?F), resp. rate 14, weight 66.2 kg (146 lb), Ht: 5'3 SpO2 100 %. Body mass index is 26.07 kg/m?. Head - Normocephalic. EOM intact with sclera clear and no icterus noted. Wearing glasses. Mouth with mucus membranes moist. Neck - supple with no jugular venous distention noted. Trachea is midline. No masses noted. Lungs - clear to auscultation. Normal breath sounds. No rales/rhonchi/whee zing noted. No labored breathing noted, such as retractions. Heart - normal S1 and S2 auscultated. No rubs/clicks/murmur s noted. Regular rate. Abdomen - soft and benign. Normal bowel sounds. Extremities - no calf tenderness noted. No pitting edema noted. Skin - normal skin integrity. Neurological - gait normal, no focal deficits noted. Psych - calm and appropriate IMPRESSION: history of colon polyps PLAN: I have discussed the above with the patient. I have offered colonoscopy, possible biopsies. I have explained the procedure to the patient. I have counseled the patient as to the risks of the procedure, including but not limited to: infection, bleeding, perforation of the GI tract, injury to any intraabdominal organs such as the liver/spleen, inability to complete the procedure, complications of anesthesia, etc. - the patient understands (more content not included)... Normal [facility] CNOVon 01-12-2024 CNOV Office Visit (GENSWS) -------- YOSELYN ANGUIANO ([id number]) 1950 F Date Time Provider Department 01/12/24 2:15 PM JESSICA FENTON During your visit today, we recorded the following information about you: Temperature Pulse Blood pressure Weight 97.6 degrees 88/minute 126/78 68 kg Height 1.6 m Jessica Fenton MD 01/12/2024 2:10 PM Signed Bowel Preparation Instructions for: NILDAIQ IF YOU DO NOT FOLLOW THESE DIRECTIONS, YOUR COLONOSCOPY WILL BE CANCELLED. Garcia Instructions: Your bowel must be empty so that your doctor can clearly view your colon. Follow all of the instructions in this handout EXACTLY as they are written. Do NOT eat any solid food the ENTIRE day before your colonoscopy. Buy your bowel preparation at least 5 days before your colonoscopy. TRANSPORTATION on the Day of Your Exam A responsible adult MUST be present with you at Check In prior to your colonoscopy and REMAIN in the endoscopy area until you are discharged. You are NOT ALLOWED to drive, take a taxi or bus, or leave the Endoscopy Center ALONE. If you do not have a responsible mechanic welder truck driver (family member or friend) with you to take you home, your exam cannot be done with sedation and will be cancelled. Please bring a list of all of your current medications, including any Over-the Counter medications with you. Medications If you take insulin, diabetic medications or blood thinners such as Coumadin (warfarin), Plavix (clopidogrel), Ticlid (ticlopidine hydrochloride), Agrylin (anagrelide), Xarelto (Rivaroxaban), Pradaxa (Dabigatran), Eliquis (Apixaban), and Effient (Prasugrel). You MUST call the doctors who orders those medicines for instructions on altering the dosage before your colonoscopy. All other medications should be taken the day of the exam with a sip of water including ASPIRIN. Five (5) Days Before Your Colonoscopy Do NOT take medicines that stop diarrhea - such as Imodium, Kaopectate, or Pepto Bismol. Do NOT take fiber supplements - such as Metamucil, Citrucel, or Perdiem. Do NOT take products that contain iron - such as multi-vitamins (the label lists what is in the products). Three (3) Days Before Your Colonoscopy Do NOT eat high-fiber foods - such as popcorn, beans, seeds (flax, sunflower, quinoa), multigrain bread, nuts, salad/vegetables, or fresh and dried fruit. 06/2019 Bowel Preparation Instructions for: ROBERTH One (1) Day Before Your Colonoscopy Only drink clear liquids the ENTIRE DAY before your colonoscopy. Do NOT eat any solid foods. Drink at least 8 ounces of clear liquids every hour after waking up. The clear liquids you can drink include: Clear Liquid (NO RED LIQUIDS) DO NOT DRINK Gatorade, Pedialyte or Powerade Clear broth or bouillon Coffee or tea (no milk or non-dairy creamer) Carbonated and non-carbonated soft drinks Ben-Aid or other fruit flavored drinks Strained fruit juices (no pulp) Jell-O, popsicles, hard candy Water Alcohol Milk or non-dairy creamers Noodles or vegetables in soup Juice with pulp Liquid you cannot see through Do not use tobacco/vaping products The bowel preparation solution will be consumed in two parts. Part 1 6 PM - Evening before your colonoscopy Drink one bottle of CLENPIQ. Over the next 5 hours, drink at least 5 cups (8 oz. Each) of clear liquid, at your own pace. You may continue to drink clear liquids until midnight. Part 2 4 1/2 hours before your colonoscopy Drink the bottle of CLENPIQ, then drink one cup (8 oz. Each) of clear liquid, every 15 minutes for at least 4 cups. You may continue to drink clear liquids up to (three) 3 hours before your exam. 2 06/2019 Jessica Fenton MD 01/14/2024 3:55 PM Signed HISTORY AND PHYSICAL Yoselyn Anguiano 1950 REFERRING PHYSICIAN: Katherine Gifford MD CHIEF COMPLAINT: Consult (Screening for colon cancer) HPI: The patient is a 73 year old female referred for endoscopy. Yoselyn notes history of colon polyps She had a colonoscopy in 2019 with no polyps found. A colonoscopy in 2013 had findings of a tubular adenoma in the sigmoid colon. The patient denies blood in stools, denies abdominal pain, and denies changes in bowel habits. The patient notes no colon cancer in immediate family. PAST MEDICAL HISTORY Diagnosis Date Allergic rhinitis, cause unspecified Hypothyroidism Mental disorder depression Mixed hyperlipidemia PAST SURGICAL HISTORY Procedure Laterality Date BUNIONECTOMY, LAPIDUS-TYPE BX BREAST NEEDLE CORE W/O IMAGING GUIDANCE SPX 11/12/2008 left breast BX BREAST NEEDLE CORE W/O IMAGING GUIDANCE SPX 11/11/2009 left breast COLONOSCOPY FLX DX W/COLLJ SPEC WHEN PFRMD 01/18/2019 Colonoscopy PT ED ORTHOPAEDICS Menicus repair PUNCTURE ASPIRATION CYST BREAST 02/07/2007 right breast under u/s guidance RECONSTRUCTION TOE POLYDACTYLY TON (more content not included)... Normal [facility] Basophil percentageOrdered B y: Katherine Gifford on 10-12-2023 Cholesterol [Mass/Vol] 229 mg/dL <200 [facility] Comment on above: <200 mg/dL Desirable 200-240 mg/dL Borderline >240 mg/dL High Risk Triglyceride [Mass/Vol] 150 mg/dL <199 [facility] Comment on above: The drugs N-Acetylcy steine and Metamizole may falsely depress this assay.Serum Triglycerides Reference Interval Normal <150 mg/dL Borderline high 150 - 199 mg/dL High 200 - 499 mg/dL Very High > or = 500 mg/dL Laboratory - Chemistry and C hemistry - challengeOrdered By: Katherine Gifford on 10-12-2023 Cholesterol in HDL [Mass/Vol] 53 mg/dL >40 [facility] Comment on above: The drugs N-Acetylcy steine and Metamizole may falsely depress this assay. Reference Range HDL <40 mg/dL Low HDL Cholesterol HDL >or= 60 mg/dL High HDL Cholesterol Cholesterol in LDL [Mass/Vol] 146 mg/dL 0-130 [facility] No Panel InformationOrdered By: Katherine Gifford on 10-12-2023 VLDL Cholesterol 30 mg/dL 5-40 [facility] Serum or plasma thyroid stim ulating hormone (TSH) measurement (units/volume)Ordered By: Katherine Gifford on 10-12-2023 TSH Qn 2.25 uIU/mL 0.358-3.74 [facility] Serum or plasma thyroxine (T 4) measurement (mass/volume)Ordered By: Katherine Gifford on 10-12-2023 T4 [Mass/Vol] 10.4 ug/dL 4.8-13.9 [facility] Basophil percentageOrdered B y: Dr. Gifford on 11-17-2022 Testosterone [Mass/Vol] ng/dL [facility] Comment on above: CENTRAL 90% REFERENC E RANGES MALE AGE <50 197.44 - 669.58 ng/dL MALE AGE > or = 50 187.72 - 684.19 ng/dL FEMALE AGE <50 8.38 - 35.01 ng/dL FEMALE AGE > or = 50 <7.00 - 35.92 ng/dL Effective as of 02/18/21 Basophil percentageon 2021 Chloride [Moles/Vol] 104 mmol/L 98-[address] [facility] Work Phone: Glucose [Mass/Vol] 82 mg/dL 74-106 [facility] Work Phone: Potassium [Moles/Vol] 4.2 mmol/L 3.5-5.[address] [facility] Work Phone: Sodium [Moles/Vol] 139 mmol/L 136-145 [facility] Work Phone: WBC (Bld) [#/Vol] 7.1 10*3/uL 4.4-11.0 [facility]: Blood erythrocytes count (nu mber/volume)on 06-08-2022 RBC (Bld) [#/Vol] 4.42 10*6/uL 4.2-5.4 [facility]: Blood hemoglobin measurement (mass/volume)on 06-08-2022 Hemoglobin (Bld) [Mass/Vol] 13.0 g/dL 12.0-15.0 [facility] Work Phone: Blood platelet mean volumeon 06-08-2022 Platelet mean volume (Bld) [Entitic vol] 10.2 fL 6.2-12.0 [facility] Work Phone: Determination of erythrocyte mean corpuscular volume (MCV)on 06-08-2022 MCV (RBC) [Entitic vol] 93.0 fL 81-99 [facility] Work Phone: Hematocrit Auto (Bld) [Volum e fraction]on 06-08-2022 Hematocrit (Bld) [Volume fraction] 41.1 % 37-47 [facility] Work Phone: Laboratory - Chemistry and C hemistry - challengeon 06-08-2022 CO2 [Moles/Vol] 29.0 mmol/L 21.0-32.0 [facility] Work Phone: T4 [Mass/Vol] 9.3 ug/dL 4.8-13.9 [facility] Work Phone: Urea nitrogen/Creatinine [Mass ratio] 14.8 mg/mg 10-20 [facility] Work Phone: Laboratory - Hematology and Cell countson 06-08-2022 Erythrocyte distribution width (RBC) [Entitic vol] 47.8 fL 35.1-43.9 [facility] Work Phone: Erythrocyte distribution width (RBC) [Ratio] 14.1 % 11.6-14.6 [facility] Work Phone: MCH (RBC) [Entitic mass] 29.4 pg 27.0-32.0 [facility] Work Phone: MCHC Auto (RBC) [Mass/Vol]on 06-08-2022 MCHC (RBC) [Mass/Vol] 31.6 g/dL 32-36 [facility] Work Phone: No Panel Informationon 06-08 Estimated GFR (MDRD) Amer 82 mL/min >60 [facility] Work Phone: Comment on above: GFR Calc Estimated GFR (MDRD) Non-Af Amer 68 mL/min >60 [facility] Work Phone: Comment on above: Non- GFR Calc Free Triiodothyronine (T3) pg/dL 2.2 pg/mL 2.18-3.98 [facility] Work Phone: Thyroid Stimulating Hormone (TSH) 2.95 uIU/mL 0.358-3.74 [facility] Work Phone: Vitamin B12 Level > 2000 pg/mL 211-911 [facility] Work Phone: Vitamin D 25-Hydroxy 58.9 ng/mL [facility] Work Phone: Comment on above: Vitamin D 25(OH) Sta tus Range Deficiency <20 ng/mL (50nmol/L) Insufficiency 20 - 30 ng/mL (50 - 75 nmol/L) Sufficiency 30 - 100 ng/mL (75 - 250 nmol/L) Toxicity >100 ng/mL (>250 nmol/L) Platelets bldon 06-08-2022 Platelets (Bld) [#/Vol] 297 10*3/uL 150-450 [facility] Work Phone: Serum or plasma calcium everett urement (mass/volume)on 06-08-2022 Calcium [Mass/Vol] 9.4 mg/dL 8.5-10.1 [facility] Work Phone: Serum or plasma creatinine m easurement (mass/volume)on 06-08-2022 Creatinine [Mass/Vol] 0.88 mg/dL 0.55-1.02 [facility] Work Phone: Comment on above: The validity of the calculated GFR & GFRAA in patients over 70 years has not been determined. Clinical correlation is essential. Serum or plasma urea nitroge n measurement (mass/volume)on 06-08-2022 Urea nitrogen [Mass/Vol] 13 mg/dL 7-18 [facility] Work Phone: Thin prep Papanicolaou smear with manual screeningon 06-08-2022 Thin prep Papanicolaou smear with manual screening 6 5-15 [facility] Work Phone: Clinical Summary: Kassidy koo 10-29-2021 MC75 OP Visit Invalid Interpretation Code [facility] Work Phone: Clinical Summary: Scanned Hi story Summaryon 10-27-2021 comments about allergies Mobic Invalid Interpretation Code [facility] Work Phone: data entered by patient, alcohol (ethanol or ETOH) use No Invalid Interpretation Code [facility] Work Phone: Data entered by patient, allergy list Penicillin Sulfa drugs Mold Plant pollens (Hay Fever) I don't have any Food Allergies Invalid Interpretation Code [facility] Work Phone: data entered by patient, drug (of abuse) use No Invalid Interpretation Code [facility] Work Phone: data entered by patient, Employer Name retired Invalid Interpretation Code [facility] Work Phone: data entered by patient, exercise history No Invalid Interpretation Code [facility] Work Phone: data entered by patient, father's medical history Alzheimer Arthritis Diabetes - non-insulin dependent Invalid Interpretation Code [facility] Work Phone: Data entered by patient, history of past surgeries Foot surgery Knee surgery other Tonsillectomy Invalid Interpretation Code [facility] Work Phone: Data entered by patient, medication list levothyroxine-25 mg-1-Daily Ypsszw-49at-5-Nidia y [id number] [id number]-Daily Probiotics-1.75 B-1-Daily [id number]-[id number]-4- Daily Iaxwxdn-279zm-1-Da paco Multi-vitamin---1- Daily Apple cider velqfap-312wy-1 or 3-Daily Zinc-50 mg-1-Daily Rciwtkvqw-45xp-7-D aily Invalid Interpretation Code [facility] Work Phone: data entered by patient, mother's medical history Gout Stroke/TIA Invalid Interpretation Code [facility] Work Phone: data entered by patient, past medical history Arthritis Depression Hypothyroidism Irritable bowel syndrome Osteopenia Invalid Interpretation Code [facility] Work Phone: data entered by patient, social history, current smoker never smoker Invalid Interpretation Code [facility] Work Phone: data entered by patient, social history, marital status Invalid Interpretation Code [facility] Work Phone: father of patient is alive or Invalid Interpretation Code [facility] Work Phone: Housing Type: apartment, [place], [place] [facility], trailer, none house Invalid Interpretation Code [facility] Work Phone: housing unit size (asthma environmental history, housing) (from single family to don't know) 1 floor Invalid Interpretation Code [facility] Work Phone: medical history of patient's brother(s) Cancer Stroke/TIA Invalid Interpretation Code [facility] Work Phone: medical history of patient's brother(s), comments Skin cancer, 2 strokes Invalid Interpretation Code [facility] Work Phone: mother of patient is alive or Alive Invalid Interpretation Code [facility] Work Phone: mother's medical history, comments 1 TIA Invalid Interpretation Code [facility] Work Phone: Number of dependent children No Invalid Interpretation Code [facility] Work Phone: sister of patient(s) alive or I do not have any sisters. My sister(s)' health history is unknown. Invalid Interpretation Code [facility] Work Phone: Lab Report: T4 Free Directon 06-01-2017 Free T4 [Mass/Vol] 1.09 ng/dL Invalid Interpretation Code 0.76-1.46 [facility] Work Phone: Lab Report: Thyroid Stim Hor michelle (TSH)on 06-01-2017 TSH Qn 2.55 m[IU]/L Invalid Interpretation Code 0.358-3.74 [facility] Work Phone: Lab Report: T4 Free Directon 03-01-2017 Free T4 [Mass/Vol] 1.20 ng/dL Invalid Interpretation Code 0.76-1.46 [facility] Work Phone: Lab Report: Thyroid Stim Hor michelle (TSH)on 03-01-2017 TSH Qn 2.32 m[IU]/L Invalid Interpretation Code 0.358-3.74 [facility] Work Phone: Lab Report: Free T3on 2016 Free T3 [Mass/Vol] 2.2 pg/mL Invalid Interpretation Code 2.18-3.98 [facility] Work Phone: Lab Report: T4 Free Directon 12-08-2016 Free T4 [Mass/Vol] 1.19 ng/dL Invalid Interpretation Code 0.76-1.46 [facility] Work Phone: Lab Report: Thyroid Stim Hor michelle (TSH)on 12-08-2016 TSH Qn 3.12 m[IU]/L Invalid Interpretation Code 0.358-3.74 [facility] Work Phone: Office Visiton 12-07-2016 Adolescent depression screening assessment Adolescent depression screening assessment Invalid Interpretation Code [facility] Work Phone: Adult depression screening assessment Adult depression screening assessment Invalid Interpretation Code [facility] Work Phone: Tobacco smoking status Never Invalid Interpretation Code [facility] Work Phone: Tobacco use status [facility] Never smoker Invalid Interpretation Code [facility] Work Phone: Office Visiton 07-29-2016 Tobacco use status [facility] Never smoker Invalid Interpretation Code [facility] Work Phone: Office Visiton 07-26-2016 MG Breast Screening Normal Bilateral Invalid Interpretation Code [facility] Work Phone: Office Visiton 11-23-2012 General categories Cyto stain (Cvx/Vag) [Interp] Normal Invalid Interpretation Code [facility] Work Phone: Vital Signs Date Time Vital Sign Value Performing Clinician Facility 2024 12:15-0400 Diastolic blood pressure 80 mm[Hg] Jessica Fenton MD Work Phone: [facility] 2024 12:15-0400 Heart rate 73 /min Jessica Fenton MD Work Phone: [facility] 2024 12:15-0400 SaO2% (BldA) [Mass fraction] 100 % Jessica Fenton MD Work Phone: [facility] 2024 12:15-0400 Systolic blood pressure 128 mm[Hg] Jessica Fenton MD Work Phone: [facility] 2024 11:38-0400 Body mass index (BMI) [Ratio] 26.56 kg/m2 Jessica Fenton MD Work Phone: [facility] 2024 11:38-0400 Body temperature 96.49 [degF] Jessica Fenton MD Work Phone: [facility] 2024 11:38-0400 Body weight 68 kg Jessica Fenton MD Work Phone: [facility] 2024 11:38-0400 Respiratory rate 16 /min Jessica Fenton MD Work Phone: [facility] 01-12-2024 14:05-0400 Body height 160 cm Jessica Fenton MD Work Phone: [facility] 01-12-2024 14:05-0400 Body mass index (BMI) [Ratio] 26.57 kg/m2 Jessica Fenton MD Work Phone: [facility] 01-12-2024 14:05-0400 Body temperature 97.59 [degF] Jessica Fenton MD Work Phone: [facility] 01-12-2024 14:05-0400 Body weight 68.04 kg Jessica Fenton MD Work Phone: [facility] 01-12-2024 14:05-0400 Diastolic blood pressure 78 mm[Hg] Jessica Fenton MD Work Phone: [facility] 01-12-2024 14:05-0400 Heart rate 88 /min Jessica Fenton MD Work Phone: [facility] 01-12-2024 14:05-0400 SaO2% (BldA) [Mass fraction] 98 % Jessica Fenton MD Work Phone: [facility] 01-12-2024 14:05-0400 Systolic blood pressure 126 mm[Hg] Jessica Fenton MD Work Phone: [facility] 06-01-2017 07:40-0500 Body height 162.56 cm Cinthia Ireland NP Work Phone: [facility] Work Phone: 06-01-2017 07:40-0500 Body mass index (BMI) [Ratio] 26.26 kg/m2 Cinthia Shook [employer]GER V[employer] Work Phone: [facility] Work Phone: 06-01-2017 07:40-0500 Body temperature 97.6 [degF] Cinthia Shook [employer] P[employer]GER [employer]SEL Work Phone: [facility] Work Phone: 06-01-2017 07:40-0500 Body weight 69.4 kg Cinthia Chavisok [employer] P[employer]GER [employer]SEL Work Phone: [facility] Work Phone: 06-01-2017 07:40-0500 Diastolic blood pressure 78 mm[Hg] Cinthia Chavisok [employer] P[employer]GER [employer]SEL Work Phone: [facility] Work Phone: 06-01-2017 07:40-0500 Heart rate 81 /min Cinthia Chavisok [employer] P[employer]GER [employer] Work Phone: [facility] Work Phone: 06-01-2017 07:40-0500 Respiratory rate 18 /min Cinthia Chavisok [employer] P[employer]ENGER [employer]SEL Work Phone: [facility] Work Phone: 06-01-2017 07:40-0500 Systolic blood pressure 118 mm[Hg] Cinthia Chavisok [employer] P[employer]GER [employer]SEL Work Phone: [facility] Work Phone: 03-02-2017 09:03-0400 Body height 162.56 cm Cinthia Shook [employer] P[employer]GER [employer]SEL Work Phone: [facility] Work Phone: 03-02-2017 09:03-0400 Body mass index (BMI) [Ratio] 26.19 kg/m2 Cinthia Shook [employer] Work Phone: [facility] Work Phone: 03-02-2017 09:03-0400 Body temperature 97.8 [degF] Cinthia Chavisok [employer] P[employer]GER [employer]SEL Work Phone: [facility] Work Phone: 03-02-2017 09:03-0400 Body weight 69.22 kg Cinthia Shook [employer] P[employer]GER [employer]SEL Work Phone: [facility] Work Phone: 03-02-2017 09:03-0400 Diastolic blood pressure 83 mm[Hg] Cinthia Chavisok [employer] P[employer]GER [employer]SEL Work Phone: [facility] Work Phone: 03-02-2017 09:03-0400 Diastolic blood pressure 76 mm[Hg] Cinthia Chavisok [employer] P[employer]GER [employer]SEL Work Phone: [facility] Work Phone: 03-02-2017 09:03-0400 Heart rate 73 /min Cinthia Chavisok [employer] P[employer]GER [employer]SEL Work Phone: [facility] Work Phone: 03-02-2017 09:03-0400 Respiratory rate 20 /min Cinthia Ireland [employer] P[employer]GER [employer]SEL Work Phone: [facility] Work Phone: 03-02-2017 09:03-0400 Systolic blood pressure 141 mm[Hg] Cinhtia Chavisok [employer] P[employer]GER [employer]SEL Work Phone: [facility] Work Phone: 03-02-2017 09:03-0400 Systolic blood pressure 126 mm[Hg] Cinthia Ireland [employer] P[employer]GER [employer] Work Phone: [facility] Work Phone: 12-07-2016 16:01-0400 Body height 162.56 cm Cinthia Chavisok [employer] P[employer]GER [employer]SEL Work Phone: [facility] Work Phone: 12-07-2016 16:01-0400 Body mass index (BMI) [Ratio] 26.6 kg/m2 Cinthia Chavisok [employer]GER [employer] Work Phone: [facility] Work Phone: 12-07-2016 16:01-0400 Body surface area Derived from formula 1.76 m2 Cinthia Chavisok [employer] P[employer]GER [employer]SEL Work Phone: [facility] Work Phone: 12-07-2016 16:01-0400 Body temperature 98.3 [degF] Cinthia Chavisok [employer] P[employer]GER [employer]SEL Work Phone: [facility] Work Phone: 12-07-2016 16:01-0400 Body temperature 98.29 [degF] Cinthia Ireland [employer] P[employer]GER [employer]SEL Work Phone: [facility] Work Phone: 12-07-2016 16:01-0400 Body weight 70.31 kg Cinthia Ireland [employer] P[employer]GER [employer]SEL Work Phone: [facility] Work Phone: 12-07-2016 16:01-0400 Diastolic blood pressure 88 mm[Hg] Cinthia Ireland [employer] P[employer]GER [employer]SEL Work Phone: [facility] Work Phone: 12-07-2016 16:01-0400 Heart rate 96 /min Cinthia Ireland [employer] P[employer]GER [employer]SEL Work Phone: [facility] Work Phone: 12-07-2016 16:01-0400 Respiratory rate 17 /min Cinthia Ireland [employer] P[employer]GER V[employer]SEL Work Phone: [facility] Work Phone: 12-07-2016 16:01-0400 SaO2% (BldA) [Mass fraction] 96 % Cinthia Ireland [employer] P[employer]ENGER V[employer]SEL Work Phone: [facility] Work Phone: 12-07-2016 16:01-0400 Systolic blood pressure 141 mm[Hg] Cinthia Ireland [employer] P[employer]GER V[employer]SEL Work Phone: [facility] Work Phone: 06-24-2016 13:03-0500 Body mass index (BMI) [Ratio] 25.4 kg/m2 Cinthia Chavisok [employer] P[employer]GER [employer]SEL Work Phone: [facility] Work Phone: 06-24-2016 13:03-0500 Body weight 67.13 kg Cinthia Ireland [employer] P[employer]ENGER V[employer]SEL Work Phone: [facility] Work Phone: 06-28-2014 13:44-0500 Body height 162.56 cm Cinthia Chavisok [employer] P[employer]GER V[employer]SEL Work Phone: [facility] Work Phone: 06-28-2014 13:44-0500 Body surface area Derived from formula 1.76 m2 Cinthia Shook [employer] P[employer]ENGER V[employer]SEL Work Phone: [facility] Work Phone: 06-28-2014 13:44-0500 Body temperature 98.7 [degF] Cinthia Shook CHE[employer] P[employer]ENGER V[employer]SEL Work Phone: [facility] Work Phone: 06-28-2014 13:44-0500 Diastolic blood pressure 77 mm[Hg] Cinthia Shook CHEF P[employer]ENGER V[employer]SEL Work Phone: [facility] Work Phone: 06-28-2014 13:44-0500 Heart rate 79 /min Cinthia Shook [employer] P[employer]GER V[employer]SEL Work Phone: [facility] Work Phone: 06-28-2014 13:44-0500 Respiratory rate 14 /min Cinthia Shook CHE[employer] P[employer]ENGER V[employer]SEL Work Phone: [facility] Work Phone: 06-28-2014 13:44-0500 Systolic blood pressure 119 mm[Hg] Cinthia Shook CHE[employer] P[employer]ENGER V[employer]SEL Work Phone: [facility] Work Phone: NEGATED: Highlighted [id number] 10:38-0400 Body height 160.02 cm Nighat [place] AT [facility] Work Phone: NEGATED: Highlighted [id number] 10:38-0400 Body height 160 cm Nighat [place] AT [facility] Work Phone: NEGATED: Highlighted [id number] 10:38-0400 Body mass index (BMI) [Ratio] 25.42 kg/m2 Nighat [place] AT [facility] Work Phone: NEGATED: Highlighted [id number] 10:38-0400 Body weight 64.86 kg Nighat [place] AT [facility] Work Phone: NEGATED: Highlighted [id number] Body weight 65 kg Nighat Minor AT [facility] Work Phone: Encounters Encounter Date Encounter Type Care Provider Facility Start: 05-23-2025 End: 05-23-2025 ambulatory Shelia Kohler Facility:[facility] Start: 11-29-2024 End: 11-29-[address] Katherine Gifford MD Work Phone: [facility] Work Phone: Start: 11-29-2024 End: 11-29-[address] Katherine Gifford MD -Outpatient [facility] Work Phone: Start: 11-29-2024 End: 11-29-2024 ambulatory Katherine Gifford Facility:[facility] Start: 11-24-2024 End: 11-24-[address] Katherine Gifford MD Work Phone: [facility] Work Phone: Start: 11-24-2024 End: 11-24-[address] Katherine Gifford MD -[facility] Work Phone: Start: 11-24-2024 End: 11-24-2024 ambulatory Katherine Gifford Facility:[facility] Start: 2024 End: 2024 ambulatory JESSICA FENTON Facility:[facility] Start: 2024 End: 2024 Subsequent hospital visit by physician Jessica Fenton MD Work Phone: Ambulatory Surgery Comment on above: History of colonic p olyps [Z86.010] Start: 01-12-2024 End: 01-12-2024 ambulatory JESSICA FENTON Facility:[facility] Start: 01-12-2024 End: 01-12-2024 Patient encounter procedure Jessica Fenton MD Work Phone: General Surgery Comment on above: History of colonic p olyps (Primary Dx) Start: 10-19-2023 End: 10-19-2023 ambulatory [facility] Work Phone: Start: 10-19-2023 End: 10-19-2023 Patient encounter procedure [facility]patient [facility] Work Phone: Start: 10-12-2023 End: 10-12-2023 ambulatory [facility] Work Phone: Start: 10-12-2023 End: 10-12-2023 Patient encounter procedure [facility] Start: 11-17-2022 End: 11-17-2022 ambulatory [facility] Work Phone: Start: 11-17-2022 End: 11-17-2022 Patient encounter procedure [facility] Start: 08-10-2022 End: 08-10-2022 Patient encounter procedure [facility] Start: 06-08-2022 End: 06-08-2022 ambulatory [facility] Work Phone: Start: 06-08-2022 End: 06-08-2022 Patient encounter procedure [facility] Procedures Date Procedure Procedure Detail Performing Clinician Start: 11-29-2024 Screening mammography Geo Gifford MD Work Phone: Start: 11-24-2024 MRI of brain without contrast Dr. Katherine Gifford MD Work Phone: Start: 2024 Colonoscopy flx dx w /collj spec when pfrmd Jessica Fenton MD Work Phone: Start: 2024 Colonoscopy Jessica Fenton MD Work Phone: Start: 10-19-2023 Screening mammography Start: 08-10-2022 Screening mammography Start: 10-29-2021 End: 10-29-2021 BP scrn no perf at interval Kal Bhat MD Work Phone: Start: 10-29-2021 End: 10-29-2021 Calc BMI abv up siddhartha f/u Kal Bhat MD Work Phone: Start: 10-29-2021 End: 10-29-2021 Current tobacco non-user cad cap copd pv dm Kal Bhat MD Work Phone: Start: 10-29-2021 End: 10-29-2021 Docrev cur meds by holly Bhat MD Work Phone: Start: 10-29-2021 End: 10-29-2021 Falls plan of care documented Kal Bhat MD Work Phone: Start: 10-29-2021 End: 10-29-2021 Falls risk assessment documented Kal Bhat MD Work Phone: Start: 10-29-2021 End: 10-29-2021 Pain doc pos and plan Kal Bhat MD Work Phone: Start: 10-29-2021 End: 10-29-2021 Patient encounter procedure Kal Bhat MD Work Phone: Start: 10-29-2021 End: 10-29-2021 Pt falls assess docd 2/> falls/fall w/injury/yr Kal Bhat MD Work Phone: Start: 01-18-2019 Colonoscopy Jessica Fenton MD Work Phone: Start: 06-16-2017 History of reconstru ction of anterior cruciate ligament tear Status post repair of anterior cruciate ligament Nighat Minor AT Start: 06-01-2017 End: 06-01-2017 Documentation of current medications Cinthia Ireland NP Work Phone: Start: 06-01-2017 End: 06-01-2017 Thyrotropin [Units/volume] in Serum or Plasma Cinthia Ireland [employer] P[employer]ENGER V[employer]SEL Work Phone: Start: 06-01-2017 End: 06-01-2017 Thyroxine (T4) free [Mass/volume] in Serum or Plasma Cinthia Ireland [employer] P[employer]ENGER V[employer]SEL Work Phone: Start: 03-02-2017 End: 03-02-2017 Documentation of current medications Cinthia Ireland NP Work Phone: Start: 12-07-2016 End: 12-07-2016 Documentation of current medications Cinthia Ireland [employer] P[employer]GER [employer] Work Phone: Start: 12-07-2016 End: 12-08-2016 Thyrotropin [Units/volume] in Serum or Plasma Cinthia Ireland [employer] P[employer]ENGER V[employer]SEL Work Phone: Start: 12-07-2016 End: 12-08-2016 Thyroxine (T4) free [Mass/volume] in Serum or Plasma Cinthia Ireland [employer] P[employer]ENGER V[employer]SEL Work Phone: Start: 12-07-2016 End: 12-08-2016 Triiodothyronine (T3) Free [Mass/volume] in Serum or Plasma Cinthia Ireland [employer] P[employer]ENGER V[employer]SEL Work Phone: Start: 08-14-2016 End: 08-14-2016 Documentation of current medications Cinthia Ireland [employer] P[employer]ENGER V[employer]SEL Work Phone: Start: 06-24-2016 End: 07-01-2016 Arthrocentesis aspir&/inj major jt/bursa w/o Ant Del Cid Work Phone: Start: 11-23-2013 End: 11-23-2013 Colonoscopy Cinthia Ireland CHE[employer] PASSENGER VESSEL Work Phone: NEGATED: Highlighted rowStart: 10-29-2021 End: 10-29-2021 Documentation of current medications Nighat Minor AT Plan of Treatment Date Care Activity Detail Author Start: 04-09-2032 Urine microalbumin profile DTaP,Tdap,Td Vaccine (4 - Td or Tdap) [facility] Start: 02-03-2029 Screening for malign ant neoplasm of colon [facility] Start: 03-26-2024 Influenza vaccination Influenz a Vaccine (#1) [facility] Start: 2024 End: 2024 Patient encounter procedure 2024 11:45 AM EDT Appointment Ambulatory Surgery [address] [place] [id number] Jessica Fenton MD [address] [place] [id number] History of colonic polyps [Z86.010] Ambulatory Surgery Comment on above: History of colonic p olyps [Z86.010] Start: 01-19-2024 Screening for malign ant neoplasm of colon [facility] Start: 07-26-2023 Advance Directive Discussion Advance Directive Discussion [facility] Start: 07-26-2023 Behavioral Health Screening Behavioral Health Screening [facility] Start: 03-26-2023 Covid-19 Vaccine () Covid-19 Vaccine () [facility] Start: 10-29-2021 End: 10-29-2021 Patient encounter procedure Appointment [facility] Work Phone: Start: 10-29-2021 End: 10-29-2021 Radex foot complete minimum 3 views XR FOOT 3+ VWS-LT [facility] Work Phone: Start: 06-01-2017 End: 06-01-2017 Patient encounter procedure Appointment [facility] Work Phone: Start: 06-01-2017 End: 06-01-2017 Thyrotropin [Units/volume] in Serum or Plasma *TSH [facility] Work Phone: Start: 06-01-2017 End: 06-01-2017 Thyroxine (T4) free [Mass/volume] in Serum or Plasma *T4 free [facility] Work Phone: Start: 03-02-2017 End: 03-02-2017 Patient encounter procedure Appointment [facility] Work Phone: Start: 02-03-2017 Screening for osteoporosis Bone Density Screening [facility] Start: 12-16-2016 End: 12-16-2016 Thyrotropin [Units/volume] in Serum or Plasma *TSH [facility] Work Phone: Start: 12-16-2016 End: 12-16-2016 Thyroxine (T4) free [Mass/volume] in Serum or Plasma *T4 free [facility] Work Phone: Start: 12-07-2016 End: 12-08-2016 Thyrotropin [Units/volume] in Serum or Plasma *TSH [facility] Work Phone: Start: 12-07-2016 End: 12-08-2016 Thyroxine (T4) free [Mass/volume] in Serum or Plasma *T4 free [facility] Work Phone: Start: 12-07-2016 End: 12-08-2016 Triiodothyronine (T3) Free [Mass/volume] in Serum or Plasma *T3-Free [facility] Work Phone: Start: 07-29-2016 End: 07-29-2016 Mri any jt lower extrem w/o contrast matrl MRI Joint Lower Extremity [facility] Work Phone: Start: 07-01-2016 End: 07-01-2016 Physical Therapy General Physical [facility], [address] [place] [address], [id number] [facility] Work Phone: Start: 06-28-2014 End: 06-28-2014 Colonoscopy flx dx w/collj spec when pfrmd Colonoscopy [facility] Work Phone: Start: 05-22-2014 Screening for malign ant neoplasm of breast Mammogram Screening [facility] Start: 2012 RSV Vaccine (1 - 1-d ose 60+ series) RSV Vaccine (1 - 1-dose 60+ series) [facility] Start: 02-03-1997 Diabetes Screening Diabetes Screenin g [facility] Start: 02-03-1997 Lipid panel Lipid Screening [facility] Start: 02-03-1997 Screening for malign ant neoplasm of colon [facility] Start: 02-03-1970 Hepatitis C screening Hepatitis C [facility] Androstenedione [Mass/volume] in Serum or Plasma [facility] Corticotropin [Mass/volume] in Plasma [facility] Patient Education [facility] Work Phone: Patient Education \cps-sql1\CPS_ PtEduca tion\CDC_FALL_PREVENT ION.pdf [facility] Work Phone: End: 01-11-2025 Screening colonoscopy COLONOSCOPY SCREENING Endoscopy Routine History of colonic polyps 1 Occurrences starting 01/12/2024 until 01/11/2025 [facility] Work Phone: Comment on above: 1 Occurrences starti ng 01/12/2024 until 01/11/2025 Immunizations Immunization Date Immunization Notes Care Provider Fa cility 03-31-2023 influenza virus vacc ine, unspecified formulation Jessica Fenton MD Work Phone: [facility] Payers Date Payer Category Payer Self-pay [id number] 2022 Unknown MMO MMO MEDICARE SUPPLEMENT [id number] 2022-Present [phone] [address] [place] [address] Indemnity [id number] 2017 Medicare MEDICARE MEDICAR E A AND B [id number] 2017-Present [phone] [address] [address] [place] [address] Medicare [id number] 2017 Unknown [id number] 2017 Medicare [id number] Unknown [id number] Unknown [id number] Social History Date Type Detail Facility Start: 03-13-2018 End: 03-13-2018 Assertion Unknown if ever smoked [facility] Work Phone: Start: 1950 Sex Assigned At Female [facility] Start: 03-13-2018 End: 01-12-2024 Tobacco smoking status NHIS Never smoked tobacco [facility] Start: 01-12-2024 Tobacco use and exposure Smokeless tobacco non-user [facility] Start: 01-12-2024 End: 2024 Alcohol intake Current non-drinker of alcohol (finding) [facility] Start: 01-12-2024 End: 01-18-2024 History of Social function [facility] Start: 01-12-2024 End: 01-18-2024 Tobacco use panel [facility] National Score (1-100), lower number is lower risk Not on file [facility] Start: 1950 Sex Assigned At Not on file [facility] Clinical Notes 12-07-2016 to 2024 Discharge Instr - Nursing - Isabel Alvarez RN - 2024 12:33 PM EDTDischarge Instr - Nursing - Isabel Alvarez RN - 2024 12:33 PM EDTBCarmen edwards LPN - 01/12/2024 2:32 PM EDT Note Date & Type Note Facility 2024 Note Formatting of this n ote might be different from the original. Pt. arrived to phase 2 resting on left side. SR up x 2, call light in reach. Isabel Alvarez RN [facility] 2024 Miscellaneous Notes Pt. arrived to phase 2 resting on left side. SR up x 2, call light in reach. Isabel Alvarez RN documented in this encounter [facility] 2024 Attending History and physical note UPDATED PROCEDURAL SEDATION HISTORY AND PHYSICAL EXAMINATION SERVICE DATE: 2024 SERVICE TIME: 11:43 PHYSICAL EXAM MUST BE COMPLETED ON ADMISSION PROCEDURE: colonoscopy, possible biopsies Procedure Indications: history of colon polyps The History and Physical (completed in the past 30 days) has been reviewed and the patient has been examined. The contents accurately reflect the patient's condition with the following additions or revisions since the H&P was completed. ASA Class: ASA Class:: Patient with mild systemic disease Examination indicates no changes. AIRWAY: Airway Visualization of Uvula: Yes Mouth opening greater than 2 fingerbreadths: Yes Neck Full Range of Motion: Yes LUNGS: Lungs clear to auscultation CARDIAC: Regular rhythm,Regular rate Provisional Diagnosis/Treatment Plan: colonosocpy, possible biopsies SEDATION GOAL: Moderate This H&P can be found in the Electronic Medical Record . SIGNATURE: Jessica Fenton MD PATIENT NAME: Yoselyn Anguiano DATE: 2024 TIME: 11:43 AM Source Note - Jessica Fenton MD - 2024 12:15 PM EDT HISTORY AND PHYSICAL Yoselyn Anguiano 1950 REFERRING PHYSICIAN: Katherine Gifford MD CHIEF COMPLAINT: New Patient (colonoscopy consult 5 year) HPI: The patient is a 68 year old female presents with history of colon polyps. She requires surveillance colonoscopy. Had colonoscopy 5 years ago with findings of tubular adenoma, subcentimeter-sized in the sigmoid colon. Denies blood in stools Denies abdominal pain Denies changes in bowel habits PAST MEDICAL HISTORY Diagnosis Date Allergic rhinitis, cause unspecified PAST SURGICAL HISTORY Procedure Laterality Date ASPIRATION BREAST CYST 02/07/2007 right breast under u/s guidance BX OF BREAST; NEEDLE CORE 11/12/2008 left breast BX OF BREAST; NEEDLE CORE 11/11/2009 left breast REMOVE TONSILS/ADENOIDS,<14 Y/O ACL surgery 2014 Current Outpatient Medications: SACCHAROMYCES BOULARDII (PROBIOTIC, S.BOULARDII, ORAL) Take 1 tablet by mouth once daily. melatonin 3 mg Take by mouth daily at bedtime. Uses PRN biotin forte 3 mg tab tablet Take 1 tablet by mouth once daily. Levothyroxine 25 mcg cap Take by mouth. Cyanocobalamin (VITAMIN B-12) 2,500 mcg subl Dissolve under the tongue. naproxen sodium (ALEVE) 220 mg cap Take by mouth. ASPIRIN/ACETAMINOPHEN/CAFFEINE (EXCEDRIN MIGRAINE ORAL) Take by mouth. MV-MIN/VIT C/GLU/JENNIFER HCL/HC124 ([place]NE, LYSINE HCL, ORAL) Take by mouth. CALCIUM CARBONATE (TUMS ORAL) Take by mouth. multivitamins(DAILY MULTIVITAMIN TAB) Take one(1) tablet daily. FARHAT 180MG TABLET takes 1 tablet per day not sure of dosage CLENPIQ 10 mg-3.5 gram -12 gram/160 mL soln Use as directed. ALLERGIES: Mobic [Meloxicam]; Naproxen; Sulfa (Sulfonamide Antibiotics) PERSONAL HISTORY: Social History Socioeconomic History Marital status: Spouse name: devin Number of children: 2 Years of education: Not on file Highest education level: Not on file Social Needs Financial resource strain: Not on file Food insecurity - worry: Not on file Food insecurity - inability: Not on file Transportation needs - medical: Not on file Transportation needs - non-medical: Not on file Occupational History Employer: [employer] Tobacco Use Smoking status: Never Smoker Smokeless tobacco: Never Used Substance and Sexual Activity Alcohol use: No Drug use: No Sexual activity: Not on file Other Topics Concerns: Not on file Social History Narrative Not on file FAMILY HISTORY Problem Relation Age of Onset other (TIA) Mother Breast Cancer Maternal Aunt Dx. @ 65 , at 82 other (CVA) Brother other (CVA) Maternal Grandmother Diabetes Maternal Grandfather other (stomach cancer) Paternal Grandfather REVIEW OF SYSTEMS: General - denies fevers, denies weight loss Cardiovascular - denies chest pain, denies history of [place] Pulmonary - denies shortness of breath, denies coughing up blood Gastrointestinal - denies abdominal pain, denies changes in bowel habits, denies blood in stools Neurological - denies seizures Genitourinary - denies burning with urination Hematological - denies spontaneous/prolonged bleeding Skin - denies nonhealing skin wounds Musculoskeletal - has some neck arthritis Endocrine - denies diabetes Psychological - denies hallucinations PHYSICAL EXAMINATION: General: The patient is 68 year old female, well nourished, well hydrated in no acute distress. The patient is oriented to time, place, and person. VITALS: Blood pressure 110/76, pulse 73, temperature 36.1 C (97 F), resp. rate 14, weight 66.2 kg (146 lb), Ht: 5'3 SpO2 100 %. Body mass index is 26.07 kg/m . Head - Normocephalic. EOM intact with sclera clear and no icterus noted. Wearing glasses. Mouth with mucus membranes moist. Neck - supple with no jugular venous distention noted. Trachea is midline. No masses noted. Lungs - clear to auscultation. Normal breath sounds. No rales/rhonchi/wheezing noted. No labored breathing noted, such as retractions. Heart - normal S1 and S2 auscultated. No rubs/clicks/murmurs noted. Regular rate. Abdomen - soft and benign. Normal bowel sounds. Extremities - no calf tenderness noted. No pitting edema noted. Skin - normal skin integrity. Neurological - gait normal, no focal deficits noted. Psych - calm and appropriate IMPRESSION: history of colon polyps PLAN: I have discussed the above with the patient. I have offered colonoscopy, possible biopsies. I have explained the procedure to the patient. I have counseled the patient as to the risks of the procedure, including but not limited to: infection, bleeding, perforation of the GI tract, injury to any intraabdominal organs such as the liver/spleen, inability to complete the procedure, complications of anesthesia, etc. - the patient understands. She takes aspirin on a regular basis and this increases her risk for bleeding. The patient wishes to proceed. I have answered all questions to the patient s satisfaction and the patient has no further questions. [facility] 2024 History and physical note HISTORY AND PHYSICAL Yoselyn Anguiano 1950 REFERRING PHYSICIAN: Katherine Gifford MD CHIEF COMPLAINT: New Patient (colonoscopy consult 5 year) HPI: The patient is a 68 year old female presents with history of colon polyps. She requires surveillance colonoscopy. Had colonoscopy 5 years ago with findings of tubular adenoma, subcentimeter-sized in the sigmoid colon. Denies blood in stools Denies abdominal pain Denies changes in bowel habits PAST MEDICAL HISTORY Diagnosis Date Allergic rhinitis, cause unspecified PAST SURGICAL HISTORY Procedure Laterality Date ASPIRATION BREAST CYST 02/07/2007 right breast under u/s guidance BX OF BREAST; NEEDLE CORE 11/12/2008 left breast BX OF BREAST; NEEDLE CORE 11/11/2009 left breast REMOVE TONSILS/ADENOIDS,<12 Y/O ACL surgery 2014 Current Outpatient Medications: SACCHAROMYCES BOULARDII (PROBIOTIC, S.BOULARDII, ORAL) Take 1 tablet by mouth once daily. melatonin 3 mg Take by mouth daily at bedtime. Uses PRN biotin forte 3 mg tab tablet Take 1 tablet by mouth once daily. Levothyroxine 25 mcg cap Take by mouth. Cyanocobalamin (VITAMIN B-12) 2,500 mcg subl Dissolve under the tongue. naproxen sodium (ALEVE) 220 mg cap Take by mouth. ASPIRIN/ACETAMINOPHEN/CAFFEINE (EXCEDRIN MIGRAINE ORAL) Take by mouth. MV-MIN/VIT C/GLU/JENNIFER HCL/HC124 (A[place]NE, LYSINE HCL, ORAL) Take by mouth. CALCIUM CARBONATE (TUMS ORAL) Take by mouth. multivitamins(DAILY MULTIVITAMIN TAB) Take one(1) tablet daily. FARHAT 180MG TABLET takes 1 tablet per day not sure of dosage CLENPIQ 10 mg-3.5 gram -12 gram/160 mL soln Use as directed. ALLERGIES: Mobic [Meloxicam]; Naproxen; Sulfa (Sulfonamide Antibiotics) PERSONAL HISTORY: Social History Socioeconomic History Marital status: Spouse name: devin Number of children: 2 Years of education: Not on file Highest education level: Not on file Social Needs Financial resource strain: Not on file Food insecurity - worry: Not on file Food insecurity - inability: Not on file Transportation needs - medical: Not on file Transportation needs - non-medical: Not on file Occupational History Employer: [employer] Tobacco Use Smoking status: Never Smoker Smokeless tobacco: Never Used Substance and Sexual Activity Alcohol use: No Drug use: No Sexual activity: Not on file Other Topics Concerns: Not on file Social History Narrative Not on file FAMILY HISTORY Problem Relation Age of Onset other (TIA) Mother Breast Cancer Maternal Aunt Dx. @ 65 , at 82 other (CVA) Brother other (CVA) Maternal Grandmother Diabetes Maternal Grandfather other (stomach cancer) Paternal Grandfather REVIEW OF SYSTEMS: General - denies fevers, denies weight loss Cardiovascular - denies chest pain, denies history of [place] Pulmonary - denies shortness of breath, denies coughing up blood Gastrointestinal - denies abdominal pain, denies changes in bowel habits, denies blood in stools Neurological - denies seizures Genitourinary - denies burning with urination Hematological - denies spontaneous/prolonged bleeding Skin - denies nonhealing skin wounds Musculoskeletal - has some neck arthritis Endocrine - denies diabetes Psychological - denies hallucinations PHYSICAL EXAMINATION: General: The patient is 68 year old female, well nourished, well hydrated in no acute distress. The patient is oriented to time, place, and person. VITALS: Blood pressure 110/76, pulse 73, temperature 36.1 C (97 F), resp. rate 14, weight 66.2 kg (146 lb), Ht: 5'3 SpO2 100 %. Body mass index is 26.07 kg/m . Head - Normocephalic. EOM intact with sclera clear and no icterus noted. Wearing glasses. Mouth with mucus membranes moist. Neck - supple with no jugular venous distention noted. Trachea is midline. No masses noted. Lungs - clear to auscultation. Normal breath sounds. No rales/rhonchi/wheezing noted. No labored breathing noted, such as retractions. Heart - normal S1 and S2 auscultated. No rubs/clicks/murmurs noted. Regular rate. Abdomen - soft and benign. Normal bowel sounds. Extremities - no calf tenderness noted. No pitting edema noted. Skin - normal skin integrity. Neurological - gait normal, no focal deficits noted. Psych - calm and appropriate IMPRESSION: history of colon polyps PLAN: I have discussed the above with the patient. I have offered colonoscopy, possible biopsies. I have explained the procedure to the patient. I have counseled the patient as to the risks of the procedure, including but not limited to: infection, bleeding, perforation of the GI tract, injury to any intraabdominal organs such as the liver/spleen, inability to complete the procedure, complications of anesthesia, etc. - the patient understands. She takes aspirin on a regular basis and this increases her risk for bleeding. The patient wishes to proceed. I have answered all questions to the patient s satisfaction and the patient has no further questions. [facility] 2024 History and physical note UPDATED PROCEDURAL SEDATION HISTORY AND PHYSICAL EXAMINATION SERVICE DATE: 2024 SERVICE TIME: 11:43 PHYSICAL EXAM MUST BE COMPLETED ON ADMISSION PROCEDURE: colonoscopy, possible biopsies Procedure Indications: history of colon polyps The History and Physical (completed in the past 30 days) has been reviewed and the patient has been examined. The contents accurately reflect the patient's condition with the following additions or revisions since the H&P was completed. ASA Class: ASA Class:: Patient with mild systemic disease Examination indicates no changes. AIRWAY: Airway Visualization of Uvula: Yes Mouth opening greater than 2 fingerbreadths: Yes Neck Full Range of Motion: Yes LUNGS: Lungs clear to auscultation CARDIAC: Regular rhythm,Regular rate Provisional Diagnosis/Treatment Plan: colonosocpy, possible biopsies SEDATION GOAL: Moderate This H&P can be found in the Electronic Medical Record . SIGNATURE: Jessica Fenton MD PATIENT NAME: Yoselyn Anguiano DATE: 2024 TIME: 11:43 AM Source Note - Jessica Fenton MD - 2024 12:15 PM EDT HISTORY AND PHYSICAL Yoselyn Kuo Annmarie 1950 REFERRING PHYSICIAN: Katherine Gifford MD CHIEF COMPLAINT: New Patient (colonoscopy consult 5 year) HPI: The patient is a 68 year old female presents with history of colon polyps. She requires surveillance colonoscopy. Had colonoscopy 5 years ago with findings of tubular adenoma, subcentimeter-sized in the sigmoid colon. Denies blood in stools Denies abdominal pain Denies changes in bowel habits PAST MEDICAL HISTORY Diagnosis Date Allergic rhinitis, cause unspecified PAST SURGICAL HISTORY Procedure Laterality Date ASPIRATION BREAST CYST 02/07/2007 right breast under u/s guidance BX OF BREAST; NEEDLE CORE 11/12/2008 left breast BX OF BREAST; NEEDLE CORE 11/11/2009 left breast REMOVE TONSILS/ADENOIDS,<14 Y/O ACL surgery 2014 Current Outpatient Medications: SACCHAROMYCES BOULARDII (PROBIOTIC, S.BOULARDII, ORAL) Take 1 tablet by mouth once daily. melatonin 3 mg Take by mouth daily at bedtime. Uses PRN biotin forte 3 mg tab tablet Take 1 tablet by mouth once daily. Levothyroxine 25 mcg cap Take by mouth. Cyanocobalamin (VITAMIN B-12) 2,500 mcg subl Dissolve under the tongue. naproxen sodium (ALEVE) 220 mg cap Take by mouth. ASPIRIN/ACETAMINOPHEN/CAFFEINE (EXCEDRIN MIGRAINE ORAL) Take by mouth. MV-MIN/VIT C/GLU/JENNIFER HCL/HC124 (AIRB[place]NE, LYSINE HCL, ORAL) Take by mouth. CALCIUM CARBONATE (TUMS ORAL) Take by mouth. multivitamins(DAILY MULTIVITAMIN TAB) Take one(1) tablet daily. FARHAT 180MG TABLET takes 1 tablet per day not sure of dosage CLENPIQ 10 mg-3.5 gram -12 gram/160 mL soln Use as directed. ALLERGIES: Mobic [Meloxicam]; Naproxen; Sulfa (Sulfonamide Antibiotics) PERSONAL HISTORY: Social History Socioeconomic History Marital status: Spouse name: devin Number of children: 2 Years of education: Not on file Highest education level: Not on file Social Needs Financial resource strain: Not on file Food insecurity - worry: Not on file Food insecurity - inability: Not on file Transportation needs - medical: Not on file Transportation needs - non-medical: Not on file Occupational History Employer: [employer] Tobacco Use Smoking status: Never Smoker Smokeless tobacco: Never Used Substance and Sexual Activity Alcohol use: No Drug use: No Sexual activity: Not on file Other Topics Concerns: Not on file Social History Narrative Not on file FAMILY HISTORY Problem Relation Age of Onset other (TIA) Mother Breast Cancer Maternal Aunt Dx. @ 65 , at 82 other (CVA) Brother other (CVA) Maternal Grandmother Diabetes Maternal Grandfather other (stomach cancer) Paternal Grandfather REVIEW OF SYSTEMS: General - denies fevers, denies weight loss Cardiovascular - denies chest pain, denies history of [place] Pulmonary - denies shortness of breath, denies coughing up blood Gastrointestinal - denies abdominal pain, denies changes in bowel habits, denies blood in stools Neurological - denies seizures Genitourinary - denies burning with urination Hematological - denies spontaneous/prolonged bleeding Skin - denies nonhealing skin wounds Musculoskeletal - has some neck arthritis Endocrine - denies diabetes Psychological - denies hallucinations PHYSICAL EXAMINATION: General: The patient is 68 year old female, well nourished, well hydrated in no acute distress. The patient is oriented to time, place, and person. VITALS: Blood pressure 110/76, pulse 73, temperature 36.1 C (97 F), resp. rate 14, weight 66.2 kg (146 lb), Ht: 5'3 SpO2 100 %. Body mass index is 26.07 kg/m . Head - Normocephalic. EOM intact with sclera clear and no icterus noted. Wearing glasses. Mouth with mucus membranes moist. Neck - supple with no jugular venous distention noted. Trachea is midline. No masses noted. Lungs - clear to auscultation. Normal breath sounds. No rales/rhonchi/wheezing noted. No labored breathing noted, such as retractions. Heart - normal S1 and S2 auscultated. No rubs/clicks/murmurs noted. Regular rate. Abdomen - soft and benign. Normal bowel sounds. Extremities - no calf tenderness noted. No pitting edema noted. Skin - normal skin integrity. Neurological - gait normal, no focal deficits noted. Psych - calm and appropriate IMPRESSION: history of colon polyps PLAN: I have discussed the above with the patient. I have offered colonoscopy, possible biopsies. I have explained the procedure to the patient. I have counseled the patient as to the risks of the procedure, including but not limited to: infection, bleeding, perforation of the GI tract, injury to any intraabdominal organs such as the liver/spleen, inability to complete the procedure, complications of anesthesia, etc. - the patient understands. She takes aspirin on a regular basis and this increases her risk for bleeding. The patient wishes to proceed. I have answered all questions to the patient s satisfaction and the patient has no further questions. HISTORY AND PHYSICAL Yoselyn Ayaan Anguiano 1950 REFERRING PHYSICIAN: Katherine Gifford MD CHIEF COMPLAINT: New Patient (colonoscopy consult 5 year) HPI: The patient is a 68 year old female presents with history of colon polyps. She requires surveillance colonoscopy. Had colonoscopy 5 years ago with findings of tubular adenoma, subcentimeter-sized in the sigmoid colon. Denies blood in stools Denies abdominal pain Denies changes in bowel habits PAST MEDICAL HISTORY Diagnosis Date Allergic rhinitis, cause unspecified PAST SURGICAL HISTORY Procedure Laterality Date ASPIRATION BREAST CYST 02/07/2007 right breast under u/s guidance BX OF BREAST; NEEDLE CORE 11/12/2008 left breast BX OF BREAST; NEEDLE CORE 11/11/2009 left breast REMOVE TONSILS/ADENOIDS,<14 Y/O ACL surgery 2015 Current Outpatient Medications: SACCHAROMYCES BOULARDII (PROBIOTIC, S.BOULARDII, ORAL) Take 1 tablet by mouth once daily. melatonin 3 mg Take by mouth daily at bedtime. Uses PRN biotin forte 3 mg tab tablet Take 1 tablet by mouth once daily. Levothyroxine 25 mcg cap Take by mouth. Cyanocobalamin (VITAMIN B-12) 2,500 mcg subl Dissolve under the tongue. naproxen sodium (ALEVE) 220 mg cap Take by mouth. ASPIRIN/ACETAMINOPHEN/CAFFEINE (EXCEDRIN MIGRAINE ORAL) Take by mouth. MV-MIN/VIT C/GLU/JENNIFER HCL/HC124 (AIRBORNE, LYSINE HCL, ORAL) Take by mouth. CALCIUM CARBONATE (TUMS ORAL) Take by mouth. multivitamins(DAILY MULTIVITAMIN TAB) Take one(1) tablet daily. FARHAT 180MG TABLET takes 1 tablet per day not sure of dosage CLENPIQ 10 mg-3.5 gram -12 gram/160 mL soln Use as directed. ALLERGIES: Mobic [Meloxicam]; Naproxen; Sulfa (Sulfonamide Antibiotics) PERSONAL HISTORY: Social History Socioeconomic History Marital status: Spouse name: devin Number of children: 2 Years of education: Not on file Highest education level: Not on file Social Needs Financial resource strain: Not on file Food insecurity - worry: Not on file Food insecurity - inability: Not on file Transportation needs - medical: Not on file Transportation needs - non-medical: Not on file Occupational History Employer: [employer] Tobacco Use Smoking status: Never Smoker Smokeless tobacco: Never Used Substance and Sexual Activity Alcohol use: No Drug use: No Sexual activity: Not on file Other Topics Concerns: Not on file Social History Narrative Not on file FAMILY HISTORY Problem Relation Age of Onset other (TIA) Mother Breast Cancer Maternal Aunt Dx. @ 65 , at 82 other (CVA) Brother other (CVA) Maternal Grandmother Diabetes Maternal Grandfather other (stomach cancer) Paternal Grandfather REVIEW OF SYSTEMS: General - denies fevers, denies weight loss Cardiovascular - denies chest pain, denies history of [place] Pulmonary - denies shortness of breath, denies coughing up blood Gastrointestinal - denies abdominal pain, denies changes in bowel habits, denies blood in stools Neurological - denies seizures Genitourinary - denies burning with urination Hematological - denies spontaneous/prolonged bleeding Skin - denies nonhealing skin wounds Musculoskeletal - has some neck arthritis Endocrine - denies diabetes Psychological - denies hallucinations PHYSICAL EXAMINATION: General: The patient is 68 year old female, well nourished, well hydrated in no acute distress. The patient is oriented to time, place, and person. VITALS: Blood pressure 110/76, pulse 73, temperature 36.1 C (97 F), resp. rate 14, weight 66.2 kg (146 lb), Ht: 5'3 SpO2 100 %. Body mass index is 26.07 kg/m . Head - Normocephalic. EOM intact with sclera clear and no icterus noted. Wearing glasses. Mouth with mucus membranes moist. Neck - supple with no jugular venous distention noted. Trachea is midline. No masses noted. Lungs - clear to auscultation. Normal breath sounds. No rales/rhonchi/wheezing noted. No labored breathing noted, such as retractions. Heart - normal S1 and S2 auscultated. No rubs/clicks/murmurs noted. Regular rate. Abdomen - soft and benign. Normal bowel sounds. Extremities - no calf tenderness noted. No pitting edema noted. Skin - normal skin integrity. Neurological - gait normal, no focal deficits noted. Psych - calm and appropriate IMPRESSION: history of colon polyps PLAN: I have discussed the above with the patient. I have offered colonoscopy, possible biopsies. I have explained the procedure to the patient. I have counseled the patient as to the risks of the procedure, including but not limited to: infection, bleeding, perforation of the GI tract, injury to any intraabdominal organs such as the liver/spleen, inability to complete the procedure, complications of anesthesia, etc. - the patient understands. She takes aspirin on a regular basis and this increases her risk for bleeding. The patient wishes to proceed. I have answered all questions to the patient s satisfaction and the patient has no further questions. documented in this encounter [facility] 01-12-2024 Nurse Note REVIEW OF SYSTEMS: General: The patient NOTES fatigue, denies weight loss, NOTES weight gain, denies feeling hot, and denies feelings of cold. Eyes: The patient denies glaucoma, denies eye injury/surgery, wears glasses or contacts. Ear/Nose/Throat: The patient NOTES allergies, denies hayfever, denies ear infections, and denies bloody noses. Cardiovascular: The patient denies chest pain, denies heart disease, denies high blood pressure,denies cardiac stent, denies prior heart attack, denies irregular heart beat, NOTES high cholesterol, denies poor circulation, denies heart failure, other cardiac issues, NOTES claudication, denies cold feet, denies peripheral arterial stent. Respiratory: The patient denies tuberculosis, denies pneumonia, denies frequent cough, denies pulmonary embolism, denies shortness of breath, and denies coughing up blood. Gastrointestinal: The patient denies difficulty swallowing, denies acid reflux, denies ulcers, denies vomiting, denies jaundice/hepatitis, denies gallbladder problems, denies black or tarry stools, denies hemorrhoids, denies bleeding from rectum, denies diverticulitis, denies constipation, denies diarrhea, denies loss of stool control, and denies hernias. Kidney/Bladder: The patient denies kidney stones, denies urine infections, and denies bloody urine. Skin: The patient denies a history of skin cancer, denies bleeding/changing moles, and denies a history of skin rash. Neurologic: The patient denies a history of epilepsy/convulsions, NOTES headaches, denies head/spinal injuries, and denies stroke/TIA. Psychiatric: The patient denies psychiatric medications, denies depression, and denies voices, denies substance abuse. Endocrine: The patient NOTES thyroid disorders, denies diabetes, and denies hormonal problems. Hematologic: The patient denies a history of bruising, denies bleeding, and denies anemia, denies blood clots. Infections: The patient denies a history of measles and mumps, denies rheumatic fever, and denies sexually transmitted diseases. Musculoskeletal: The patient denies back pain/injury, denies back problems, denies sciatica, NOTES knee/foot trouble, denies arthritis, or denies gout. When was patient's last Mammogram screening? N/A Last Colonoscopy: 2018 Carmen Marrero LPN [facility] 01-12-2024 Nurse Note REVIEW OF SYSTEMS: General: The patient NOTES fatigue, denies weight loss, NOTES weight gain, denies feeling hot, and denies feelings of cold. Eyes: The patient denies glaucoma, denies eye injury/surgery, wears glasses or contacts. Ear/Nose/Throat: The patient NOTES allergies, denies hayfever, denies ear infections, and denies bloody noses. Cardiovascular: The patient denies chest pain, denies heart disease, denies high blood pressure,denies cardiac stent, denies prior heart attack, denies irregular heart beat, NOTES high cholesterol, denies poor circulation, denies heart failure, other cardiac issues, NOTES claudication, denies cold feet, denies peripheral arterial stent. Respiratory: The patient denies tuberculosis, denies pneumonia, denies frequent cough, denies pulmonary embolism, denies shortness of breath, and denies coughing up blood. Gastrointestinal: The patient denies difficulty swallowing, denies acid reflux, denies ulcers, denies vomiting, denies jaundice/hepatitis, denies gallbladder problems, denies black or tarry stools, denies hemorrhoids, denies bleeding from rectum, denies diverticulitis, denies constipation, denies diarrhea, denies loss of stool control, and denies hernias. Kidney/Bladder: The patient denies kidney stones, denies urine infections, and denies bloody urine. Skin: The patient denies a history of skin cancer, denies bleeding/changing moles, and denies a history of skin rash. Neurologic: The patient denies a history of epilepsy/convulsions, NOTES headaches, denies head/spinal injuries, and denies stroke/TIA. Psychiatric: The patient denies psychiatric medications, denies depression, and denies voices, denies substance abuse. Endocrine: The patient NOTES thyroid disorders, denies diabetes, and denies hormonal problems. Hematologic: The patient denies a history of bruising, denies bleeding, and denies anemia, denies blood clots. Infections: The patient denies a history of measles and mumps, denies rheumatic fever, and denies sexually transmitted diseases. Musculoskeletal: The patient denies back pain/injury, denies back problems, denies sciatica, NOTES knee/foot trouble, denies arthritis, or denies gout. When was patient's last Mammogram screening? N/A Last Colonoscopy: 2018 Carmen Marrero LPN documented in this encounter [facility] 01-12-2024 History of Presen t illness Narrative HISTORY AND PHYSICAL Yoselyn Anguiano 1950 REFERRING PHYSICIAN: Katherine Gifford MD CHIEF COMPLAINT: Consult (Screening for colon cancer) HPI: The patient is a 73 year old female referred for endoscopy. Yoselyn notes history of colon polyps She had a colonoscopy in 2019 with no polyps found. A colonoscopy in 2013 had findings of a tubular adenoma in the sigmoid colon. The patient denies blood in stools, denies abdominal pain, and denies changes in bowel habits. The patient notes no colon cancer in immediate family. PAST MEDICAL HISTORY Diagnosis Date Allergic rhinitis, cause unspecified Hypothyroidism Mental disorder depression Mixed hyperlipidemia PAST SURGICAL HISTORY Procedure Laterality Date BUNIONECTOMY, LAPIDUS-TYPE BX BREAST NEEDLE CORE W/O IMAGING GUIDANCE SPX 11/12/2008 left breast BX BREAST NEEDLE CORE W/O IMAGING GUIDANCE SPX 11/11/2009 left breast COLONOSCOPY FLX DX W/COLLJ SPEC WHEN PFRMD 01/18/2019 Colonoscopy PT ED ORTHOPAEDICS Menicus repair PUNCTURE ASPIRATION CYST BREAST 02/07/2007 right breast under u/s guidance RECONSTRUCTION TOE POLYDACTYLY TONSILLECTOMY & ADENOIDECTOMY <AGE 12 Current Outpatient Medications Medication Sig cholecalciferol (VITAMIN D-3) 400 unit tab Take 400 Units by mouth once daily. [id number] C-E-herbal 1,250 mcg-50 mg -67.5 mg-15 mg chew Take 2 tablets by mouth once daily. diphenhydramine HCl (BENADRYL ALLERGY ORAL) Take 25 mg by mouth once daily. SACCHAROMYCES BOULARDII (PROBIOTIC, S.BOULARDII, ORAL) Take 1 tablet by mouth once daily. melatonin 3 mg Take by mouth daily at bedtime. Uses PRN Levothyroxine 25 mcg cap Take by mouth. naproxen sodium (ALEVE) 220 mg cap Take by mouth. MV-MIN/VIT C/GLU/JENNIFER HCL/HC124 (AIRBORNE, LYSINE HCL, ORAL) Take by mouth. CALCIUM CARBONATE (TUMS ORAL) Take by mouth. multivitamins(DAILY MULTIVITAMIN TAB) Take one(1) tablet daily. FARHAT 180MG TABLET takes 1 tablet per day not sure of dosage sodium picosulfate-magnesium oxide-citric acid (CLENPIQ) 10 mg-3.5 gram- 12 gram/175 mL oral solution Refer to instructions given by your provider biotin forte 3 mg tab tablet Take 1 tablet by mouth once daily. Cyanocobalamin (VITAMIN B-12) 2,500 mcg subl Dissolve under the tongue. ASPIRIN/ACETAMINOPHEN/CAFFEINE (EXCEDRIN MIGRAINE ORAL) Take by mouth. (Patient not taking: Reported on 01/12/2024) No current facility-administered medications for this visit. ALLERGIES: Mobic [Meloxicam], Naproxen, and Sulfa (Sulfonamide Antibiotics) PERSONAL HISTORY: Social History Tobacco Use Smoking status: Never Smokeless tobacco: Never Vaping Use Vaping Use: Never used Substance Use Topics Alcohol use: No Drug use: No FAMILY HISTORY Problem Relation Age of Onset other (TIA) Mother Breast Cancer Maternal Aunt Dx. @ 65 , at 82 other (CVA) Brother other (CVA) Maternal Grandmother Diabetes Maternal Grandfather other (stomach cancer) Paternal Grandfather The review of systems data was entered by the nurse and reviewed by md Nursing Notes: Carmen Marrero LPN 01/12/2024 2:34 PM Signed REVIEW OF SYSTEMS: General: The patient NOTES fatigue, denies weight loss, NOTES weight gain, denies feeling hot, and denies feelings of cold. Eyes: The patient denies glaucoma, denies eye injury/surgery, wears glasses or contacts. Ear/Nose/Throat: The patient NOTES allergies, denies hayfever, denies ear infections, and denies bloody noses. Cardiovascular: The patient denies chest pain, denies heart disease, denies high blood pressure,denies cardiac stent, denies prior heart attack, denies irregular heart beat, NOTES high cholesterol, denies poor circulation, denies heart failure, other cardiac issues, NOTES claudication, denies cold feet, denies peripheral arterial stent. Respiratory: The patient denies tuberculosis, denies pneumonia, denies frequent cough, denies pulmonary embolism, denies shortness of breath, and denies coughing up blood. Gastrointestinal: The patient denies difficulty swallowing, denies acid reflux, denies ulcers, denies vomiting, denies jaundice/hepatitis, denies gallbladder problems, denies black or tarry stools, denies hemorrhoids, denies bleeding from rectum, denies diverticulitis, denies constipation, denies diarrhea, denies loss of stool control, and denies hernias. Kidney/Bladder: The patient denies kidney stones, denies urine infections, and denies bloody urine. Skin: The patient denies a history of skin cancer, denies bleeding/changing moles, and denies a history of skin rash. Neurologic: The patient denies a history of epilepsy/convulsions, NOTES headaches, denies head/spinal injuries, and denies stroke/TIA. Psychiatric: The patient denies psychiatric medications, denies depression, and denies voices, denies substance abuse. Endocrine: The patient NOTES thyroid disorders, denies diabetes, and denies hormonal problems. Hematologic: The patient denies a history of bruising, denies bleeding, and denies anemia, denies blood clots. Infections: The patient denies a history of measles and mumps, denies rheumatic fever, and denies sexually transmitted diseases. Musculoskeletal: The patient denies back pain/injury, denies back problems, denies sciatica, NOTES knee/foot trouble, denies arthritis, or denies gout. When was patient's last Mammogram screening? N/A Last Colonoscopy: 2019 Carmen Marrero LPN PHYSICAL EXAMINATION: General: The patient is 73 year old female, well nourished, well hydrated in no acute distress. The patient is oriented to time, place, and person. VITALS: Blood pressure 126/78, pulse 88, temperature 36.4 C (97.6 F), height 160 cm (5' 3), weight 68 kg (150 lb), last menstrual period 04/15/2003, SpO2 98%. Body mass index is 26.57 kg/m . Head: Normal cephalic, atraumatic Eyes: pupils are equally round, sclera are clear/anicteric, wearing glasses Neck is supple with no tracheal deviation Cardiac: normal heart sounds, regular Respiratory: Normal respiratory excursion and pattern. Abdominal exam: benign Extremities: no clubbing, cyanosis or edema. Neuro: non focal Psych: normal mood Assessment IMPRESSION: history of colon polyp PLAN: I have discussed the above with the patient. I have offered colonoscopy , possible biopsies I have explained the procedure to the patient. I have counseled the patient as to the risks of the procedure, including but not limited to: infection, bleeding, injury to any intrabdominal organs such as liver/spleen, perforation of the GI tract, inability to complete the procedure, complications of anesthesia, etc. - the patient understands. The patient wishes to proceed. I have answered all questions to the patient s satisfaction and the patient has no further questions. She requests an easier colon cleansing solution than the normal and I have offered Clenpiq and have explained that she will need to be on a clear liquid diet the entire day prior to the procedure and then drink each glass of the Clenpiq at least 6 hours apart from each other on the day prior to the procedure. The patient will be scheduled for the procedure at [facility]. Diagnoses: (Z86.010) History of colonic polyps (primary encounter diagnosis) I have confirmed and edited as necessary, the PFSH and ROS obtained by others. Consultation requested by Dr. Katherine Gifford for an opinion regarding patient's history of colon polyp. My final recommendations will be communicated back to the requesting physician by way of shared Medical record or letter to requesting physician via US mail. Medical Decision Making: Risk: Moderate: Decision on minor surgery w/ risk factors Medical Decision Making Level: 2 - Straightforward Jessica Fenton MD documented in this encounter [facility] 01-12-2024 Note HNO ID: [id number] Author: JESSICA FENTON MD Service: ? Author Type: Physician Type: Progress Notes Filed: 01/14/2024 15:55 Note Text: HISTORY AND PHYSICAL Yoselyn Anguiano 1950 REFERRING PHYSICIAN: Katherine Gifford MD CHIEF COMPLAINT: Consult (Screening for colon cancer) HPI: The patient is a 73 year old female referred for endoscopy. Yoselyn notes history of colon polyps She had a colonoscopy in 2019 with no polyps found. A colonoscopy in 2013 had findings of a tubular adenoma in the sigmoid colon. The patient denies blood in stools, denies abdominal pain, and denies changes in bowel habits. The patient notes no colon cancer in immediate family. PAST MEDICAL HISTORY Diagnosis Date Allergic rhinitis, cause unspecified Hypothyroidism Mental disorder depression Mixed hyperlipidemia PAST SURGICAL HISTORY Procedure Laterality Date BUNIONECTOMY, LAPIDUS-TYPE BX BREAST NEEDLE CORE W/O IMAGING GUIDANCE SPX 11/12/2008 left breast BX BREAST NEEDLE CORE W/O IMAGING GUIDANCE SPX 11/11/2009 left breast COLONOSCOPY FLX DX W/COLLJ SPEC WHEN PFRMD 01/18/2019 Colonoscopy PT ED ORTHOPAEDICS Menicus repair PUNCTURE ASPIRATION CYST BREAST 02/07/2007 right breast under u/s guidance RECONSTRUCTION TOE POLYDACTYLY TONSILLECTOMY AND ADENOIDECTOMY Current Outpatient Medications Medication Sig cholecalciferol (VITAMIN D-3) 400 unit tab Take 400 Units by mouth once daily. ovxxyi-axxqtdph-zoe C-E-herbal 1,250 mcg-50 mg -67.5 mg-15 mg chew Take 2 tablets by mouth once daily. diphenhydramine HCl (BENADRYL ALLERGY ORAL) Take 25 mg by mouth once daily. SACCHAROMYCES BOULARDII (PROBIOTIC, S.BOULARDII, ORAL) Take 1 tablet by mouth once daily. melatonin 3 mg Take by mouth daily at bedtime. Uses PRN Levothyroxine 25 mcg cap Take by mouth. naproxen sodium (ALEVE) 220 mg cap Take by mouth. MV-MIN/VIT C/GLU/JENNIFER HCL/HC124 (AIRBORNE, LYSINE HCL, ORAL) Take by mouth. CALCIUM CARBONATE (TUMS ORAL) Take by mouth. multivitamins(DAILY MULTIVITAMIN TAB) Take one(1) tablet daily. FARHAT 180MG TABLET takes 1 tablet per day not sure of dosage sodium picosulfate-magnesium oxide-citric acid (CLENPIQ) 10 mg-3.5 gram- 12 gram/175 mL oral solution Refer to instructions given by your provider biotin forte 3 mg tab tablet Take 1 tablet by mouth once daily. Cyanocobalamin (VITAMIN B-12) 2,500 mcg subl Dissolve under the tongue. ASPIRIN/ACETAMINOPHEN/CAFFEINE (EXCEDRIN MIGRAINE ORAL) Take by mouth. (Patient not taking: Reported on 01/12/2024) No current facility-administered medications for this visit. ALLERGIES: Mobic [Meloxicam], Naproxen, and Sulfa (Sulfonamide Antibiotics) PERSONAL HISTORY: Social History Tobacco Use Smoking status: Never Smokeless tobacco: Never Vaping Use Vaping Use: Never used Substance Use Topics Alcohol use: No Drug use: No FAMILY HISTORY Problem Relation Age of Onset other (TIA) Mother Breast Cancer Maternal Aunt Dx. @ 65 , at 82 other (CVA) Brother other (CVA) Maternal Grandmother Diabetes Maternal Grandfather other (stomach cancer) Paternal Grandfather The review of systems data was entered by the nurse and reviewed by md Nursing Notes: Carmen Marrero LPN 01/12/2024 2:34 PM Signed REVIEW OF SYSTEMS: General: The patient NOTES fatigue, denies weight loss, NOTES weight gain, denies feeling hot, and denies feelings of cold. Eyes: The patient denies glaucoma, denies eye injury/surgery, wears glasses or contacts. Ear/Nose/Throat: The patient NOTES allergies, denies hayfever, denies ear infections, and denies bloody noses. Cardiovascular: The patient denies chest pain, denies heart disease, denies high blood pressure,denies cardiac stent, denies prior heart attack, denies irregular heart beat, NOTES high cholesterol, denies poor circulation, denies heart failure, other cardiac issues, NOTES claudication, denies cold feet, denies peripheral arterial stent. Respiratory: The patient denies tuberculosis, denies pneumonia, denies frequent cough, denies pulmonary embolism, denies shortness of breath, and denies coughing up blood. Gastrointestinal: The patient denies difficulty swallowing, denies acid reflux, denies ulcers, denies vomiting, denies jaundice/hepatitis, denies gallbladder problems, denies black or tarry stools, denies hemorrhoids, denies bleeding from rectum, denies diverticulitis, denies constipation, denies diarrhea, denies loss of stool control, and denies hernias. Kidney/Bladder: The patient denies kidney stones, denies urine infections, and denies bloody urine. Skin: The patient denies a history of skin cancer, denies bleeding/changing moles, and denies a history of skin rash. Neurologic: The patient denies a history of epilepsy/convulsions, NOTES headaches, denies head/spinal injuries, and denies stroke/TIA. Psychiatric: The patient denies psychiatric medications, denies depression, and de (more content not included)... [facility] 01-12-2024 Instructions Jessica Fenton MD - 01/12/2024 2:10 PM EDT Images from the original note were not included. Bowel Preparation Instructions for: CLENPIQ IF YOU DO NOT FOLLOW THESE DIRECTIONS, YOUR COLONOSCOPY WILL BE CANCELLED. Garcia Instructions: Your bowel must be empty so that your doctor can clearly view your colon. Follow all of the instructions in this handout EXACTLY as they are written. Do NOT eat any solid food the ENTIRE day before your colonoscopy. Buy your bowel preparation at least 5 days before your colonoscopy. TRANSPORTATION on the Day of Your Exam A responsible adult MUST be present with you at Check In prior to your colonoscopy and REMAIN in the endoscopy area until you are discharged. You are NOT ALLOWED to drive, take a taxi or bus, or leave the Endoscopy Center ALONE. If you do not have a responsible mechanic welder truck driver (family member or friend) with you to take you home, your exam cannot be done with sedation and will be cancelled. Please bring a list of all of your current medications, including any Over-the Counter medications with you. Medications If you take insulin, diabetic medications or blood thinners such as Coumadin (warfarin), Plavix (clopidogrel), Ticlid (ticlopidine hydrochloride), Agrylin (anagrelide), Xarelto (Rivaroxaban), Pradaxa (Dabigatran), Eliquis (Apixaban), and Effient (Prasugrel). You MUST call the doctors who orders those medicines for instructions on altering the dosage before your colonoscopy. All other medications should be taken the day of the exam with a sip of water including ASPIRIN. Five (5) Days Before Your Colonoscopy Do NOT take medicines that stop diarrhea - such as Imodium, Kaopectate, or Pepto Bismol. Do NOT take fiber supplements - such as Metamucil, Citrucel, or Perdiem. Do NOT take products that contain iron - such as multi-vitamins (the label lists what is in the products). Three (3) Days Before Your Colonoscopy Do NOT eat high-fiber foods - such as popcorn, beans, seeds (flax, sunflower, quinoa), multigrain bread, nuts, salad/vegetables, or fresh and dried fruit. 06/2019 Bowel Preparation Instructions for: CLENPIQ One (1) Day Before Your Colonoscopy Only drink clear liquids the ENTIRE DAY before your colonoscopy. Do NOT eat any solid foods. Drink at least 8 ounces of clear liquids every hour after waking up. The clear liquids you can drink include: Clear Liquid (NO RED LIQUIDS) DO NOT DRINK Gatorade, Pedialyte or Powerade Clear broth or bouillon Coffee or tea (no milk or non-dairy creamer) Carbonated and non-carbonated soft drinks Ben-Aid or other fruit flavored drinks Strained fruit juices (no pulp) Jell-O, popsicles, hard candy Water Alcohol Milk or non-dairy creamers Noodles or vegetables in soup Juice with pulp Liquid you cannot see through Do not use tobacco/vaping products The bowel preparation solution will be consumed in two parts. Part 1 6 PM - Evening before your colonoscopy Drink one bottle of CLENPIQ. Over the next 5 hours, drink at least 5 cups (8 oz. Each) of clear liquid, at your own pace. You may continue to drink clear liquids until midnight. Part 2 4 1/2 hours before your colonoscopy Drink the bottle of CLENPIQ, then drink one cup (8 oz. Each) of clear liquid, every 15 minutes for at least 4 cups. You may continue to drink clear liquids up to (three) 3 hours before your exam. 06/2019 documented in this encounter [facility] 10-29-2021 Instructions CompletedPatient advised to follow-up with Primary Care Physician for BMI management. [facility] Work Phone: [phone] Fall risk [id number] Work Phone: Evaluation noteThere may be information available, but it has not been provided by the sender.[facility] Work Phone: Evaluation noteNo assessment information available [facility] Work Phone: Evaluation note* Diagnosis History of colonic polyps- Primary Personal history of colonic polyps [facility] [place] [facility] Diagnosis History of colonic polyps Personal history of colonic polyps documented in this encounter [facility] for referral (narrative)* Outpatient Procedure (Routine) - Authorized Specialty Diagnoses / Procedures Referred By Contac t Referred To Contact [facility] [place] Diagnoses History of colonic polyps Procedures COLONOSCOPY SCREENING COLONOSCOPY FLX DX W/COLLJ SPEC WHEN Jessica Eugene MD [address] [place] [address] [address] Referral ID Status Reason Start Date Expiration Date Visits Requested Visits Authorized [id number] Authorized Auto-Generat ed Referral 01/12/2024 01/11/2025 1 1 [facility] for referral (narrative)* Outpatient Procedure (Routine) - Closed Specialty Diagnoses / Procedures Referred By Contac t Referred To Contact [facility] [place] Diagnoses History of colonic polyps Procedures COLONOSCOPY SCREENING COLONOSCOPY FLX DX W/COLLJ SPEC WHEN Jessica Eugene MD [address] [place] [address] [facility] [address] [place] [id number] Referral ID Status Reason Start Date Expiration Date V isits Requested Visits Authorized [id number] Closed Auto-Generate d Referral 01/12/2024 01/11/2025 1 1 [facility] for referral (narrative)No reason for referral information availableWHigh[facility] Work Phone: Reason for visit Narrative* Outpatient Procedure (Routine) - Closed Specialty Diagnoses / Procedures Referred By Contkee t Referred To Contact [facility] [place] Diagnoses History of colonic polyps Procedures COLONOSCOPY SCREENING COLONOSCOPY FLX DX W/COLLJ SPEC WHEN Jessica Eugene MD [address] [place] [address] [facility] [place] Geena [employer] [place] [id number] Referral ID Status Reason Start Date Expiration Date V isits Requested Visits Authorized [id number] Closed Auto-Generate d Referral 01/12/2024 01/11/2025 1 1 [facility] Chief Complaint Chief Complaint Description Start Date left foot post Left dorsal c heilectomy Kenisha/Livan [id number] distal minimally invasive metatarsal osteotomy on 06/05/2021 Preliminary chief co mplaint data, not yet signed by the author as of Advance Directives No Advanced Directives Records Found Advance Directive Response Recorded Date/ Time Advance Directives No May 8:34pm Living Will Yes June 16 016 8:34pm Power of Word Processing Machine Operator No June 16, 2016 8:34pm Advance Directive Response Recorded Date/ Time Advance Directives No May 9:34pm Living Will Yes June 16 016 9:34pm Power of Word Processing Machine Operator No June 16, 2016 9:34pm Advance Directive Response Recorded Date/ Time Advance Directives No May 9:34pm Family History No Family History Records Found Relationship Condition Age at Onset Recorded Date/T susan mother Malignant neoplasm of skin Unknown Cerebrovascular accident (CVA) Unknown Cardiac arrhythmia Unknown father Malignant neoplasm of skin Unknown Arthritis Unknown brother Malignant neoplasm of skin Unknown Chief Complaint and Reason for Visit Chief Complaint SCREENING Chief Complaint Admit Date EXPRESSIVE APHASIA MENTAL CHANGE November 8:41am SCREENING November 29, 2024 10:34a m Summary Purpose Additional Source Comments Reason for Visit (unrecogniz ed section and content) Reason For Visit Description Postop - subsequent visit Preliminary reason f or visit data, not yet signed by the author as of left foot post Left dorsal cheilectomy Kenisha/Livan [id number] distal minimally invasive metatarsal osteotomy on 06/05/2021 Reason Comments Consult Screening for colon cancer Goals (unrecognized section and content) Goals may be documented in a n alternate sectionGoals may be documented in an alternate sectionGoals may be documented in an alternate sectionGoals may be documented in an alternate sectionGoals may be documented in an alternate sectionGoals may be documented in an alternate section Care Teams (unrecognized sec tion and content) Team Status: Active Member Role Status Dates Dr. Katherine Gifford MD Family Provider Active Dr. Katehrine Gifford MD Primary Care Provider Active Team Status: Inactive Member Role Status Dates Dr. Katherine Gifford MD Primary Care Prov ider, Attending Provider, Referring Provider Active Team Status: Inactive Member Role Status Dates Dr. Katherine Gifford MD Primary Care Provider, Attendin g Provider Active Team Status: Active Member Role Status Dates Dr. Katherine Gifford MD Primary Care Prov ider, Attending Provider, Referring Provider Active Solar Installation Technician Relationship Specialty Start Date End Date Katherine Gifford [address] [facility] [address] [place] [address] PCP - General Family Medicine 01/04/19 Solar Installation Technician Relationship Specialty Start Date End Date Katherine Gifford [address] [facility] [address] [place] [address] PCP - General Family Medicine 01/04/19 Team Status: Active Member Role Status Dates Dr. Katherine Gifford MD Primary Care Provider Active Team Status: Inactive Member Role Status Dates Dr. Katherine Gifford MD Primary Care Provider Active Start: November 24, 2024 End: November 24, 2024 Dr. Katherine Gifford MD Attending Provider Active Start: November 24, 2024 End: November 24, 2024 Dr. Katherine Gifford MD Referring Provider Active Start: November 24, 2024 End: November 24, 2024 Team Status: Active Member Role Status Dates Dr. Katherine Gifford MD Primary Care Provider Active Start: November 29, 2024 Dr. Katherine Gifford MD Attending Provider Active Start: November 29, 2024 Dr. Katherine Gifford MD Referring Provider Active Start: November 29, 2024 Team Status: Inactive Member Role Status Dates Dr. Katherine Gifford MD Primary Care Provider Active Start: November 29, 2024 End: November 29, 2024 Dr. Katherine Gifford MD Attending Provider Active Start: November 29, 2024 End: November 29, 2024 Dr. Katherine Gifford MD Referring Provider Active Start: November 29, 2024 End: November 29, 2024 Source Comments (unrecognize d section and content) In the event this informatio n is protected by the Federal Confidentiality of Alcohol and Drug Abuse Patient Records regulations: The Federal rules restrict any use of the information to criminally investigate or prosecute any alcohol or drug abuse patient.[facility] the event this information is protected by the Federal Confidentiality of Alcohol and Drug Abuse Patient Records regulations: The Federal rules restrict any use of the information to criminally investigate or prosecute any alcohol or drug abuse patient.[facility] INFORMATION SOURCE (unrecogn ized section and content) DATE CREATED AUTHOR 02/10/2024 [facility] DATE CREATED AUTHOR AUTHOR'S BRAULIO LEBRON 06/02/2025 [facility] FOR RECORDS PERTAINING TO PATIENTS WHO ARE OR HAVE BEEN ENROLLED IN A CHEMICAL DEPENDENCY/SUBSTANCEABUSE PROGRAM, SOME INFORMATION MAY BE OMITTED. This clinical summary was aggregated from multiple sources. Caution should be exercised in using it in the provision of clinical care. This summary normalizes information from multiple sources, and as a consequence, information in this document may materially change the coding, format and clinical context of patient data. In addition, data may be omitted in some cases. CLINICAL DECISIONS SHOULD BE BASED ON THE PRIMARY CLINICAL RECORDS. [facility] [employer] [facility]. provides no warranty or guarantee of the accuracy or completeness of information in this document.
== END | disposition home or self-care (01) ==
LOC: MTRAD 09:51
PROVIDERS: PCP Family Medicine; Referring Provider Family Medicine; Visit Provider Family Medicine
DX: R05.8 Other specified cough (principal)
CPT/HCPCS: 71046